=== PATIENT | male | born 1965 | race Caucasian/White ===

== ENCOUNTER 2019-12-13 11:50 | Emergency (ER) | payer OTHER, SELFPAY ==
--- NOTE | ~2019-12-13 | CT_ITS ---
EXAMINATION: CT lumbar spine wo [facility] EXAM DATE: 12/13/2019 14:52 INDICATION: Low back pain radiating down right leg. TECHNIQUE: Spiral CT of the lumbar spine was performed without contrast. Axial, coronal and sagittal images were reviewed. The dose-length product (DLP) for this examination was 1107.33 mGy-cm. The exposure was tailored according to patient size (auto mA exposure control), and iterative reconstruct ion (ASIR) was used as additional dose reduction technique. There is no prior study for comparison. FINDINGS: There is mild to moderate disc disease at L5-S1 with 2 mm retrolisthesis. Mild disc disease at the other thoracolumbar levels. There are small endplate osteophytes. There are no acute fracture s identified. No spondylolysis. There are no osteoblastic or osteolytic lesions identified. No hydron ephrosis. Mild sigmoid diverticulosis. There are no bony erosions identified. Level by level evaluation: T12-L1: Disc does not extend beyond the endplate margin. Facet arthropathy: None. Neural foraminal stenosis: No stenosis. Central canal stenosis: No stenosis. L1-L2: Disc does not extend beyond the endplate margin. Facet arthropathy: Mild. Neural foraminal stenosis: No stenosis. Central canal stenosis: No stenosis. L2-L3: There is a minimal diffuse disc bulge. Facet arthropathy: Mild. Neural foraminal stenosis: No stenosis. Central canal stenosis: No stenosis. L3-L4: There is a mild diffuse disc bulge. Facet arthropathy: Mild. Neural foraminal stenosis: No stenosis. Central canal stenosis: No stenosis. L4-L5: There is a mild diffuse disc bulge. Facet arthropathy: Mild to moderate. Neural foraminal stenosis: Mild left. Central canal stenosis: Mild. L5-S1: There is posterior disc osteophyte complex asymmetric to the right Facet arthropathy: Mild to moderate. Neural foraminal stenosis: Moderate right, mild left. Central canal stenosis: Mild. IMPRESSION: 1. L5-S1 moderate right neural foraminal stenosis. 2. Otherwise mild to moderate lumbar spondylosis. 3. No acute findings. Reviewed, dictated and finalized at location B. [facility] signed by Abhishek Ko M.D. on 12/13/2019 15:05 CDT
--- NOTE | ~2019-12-13 | US_ITS ---
EXAMINATION: US venous doppler LE RT DATE: 12/13/2019 15:16 INDICATION: Right lower limb pain TECHNIQUE: Gonzales scale images without and with compression and Doppler images of the right lower extre mity veins were obtained. COMPARISON: None FINDINGS: The right common femoral vein, profunda femoral vein, femoral vein, popliteal vein, peronea l trunk, posterior tibial veins, and greater saphenous vein are patent. IMPRESSION: 1. Patent right lower extremity veins. No evidence of deep venous thrombosis. Reviewed, dictated and finalized at location A.
[2019-12-13 12:04] VITALS: BP 125/79; PULSE 78; RESP 18; TEMP 36.7; O2SAT 99
[2019-12-13 13:57] VITALS: BP 138/82; PULSE 52; RESP 20; TEMP 36.6; O2SAT 99
--- NOTE | 2019-12-13 14:04 | PC.NURSE ---
Patient also reports intermittent ana luisa horse feeling to his right calf. calf is not swollen and same size as the left calf. There is no redness or increased warmth to the right calf compared to the left.
--- NOTE | 2019-12-13 14:22 | ED.BACK ---
HPI - Back Pain/Injury General Chief Complaint: Back Pain/Injury Stated Complaint: back pain Time Seen by Provider: 12/13/19 13:08 Source: patient Mode of arrival: wheelchair Limitations: no limitations History of Present Illness HPI Narrative: This is a 54 year old male that presents to the ER for right sided buttock pain radiating down the right leg. Reports it has been present for months. Reports worsening over the last couple of days. No known injury or trauma. Denies fever, dysuria, hematuria, saddle anesthesia or bowel/bladder incontinence. Related Data Allergies Allergy/AdvReac Type Severity Reaction Status Date / Time No Known Allergies Allergy Verified 12/13/19 12:08 Review of Systems Review of Systems: Narrative: CONSTITUTIONAL: Denies fever SKIN: Denies rash MUSCULOSKELETAL: Reports back pain, joint pain, and myalgia. NEUROLOGIC: Denies numbness, or weakness. All systems reviewed & are unremarkable except as noted in HPI and below PMFSH Family History Family History (Updated 03/25/17 @ 10:41 by DOCTOR UNKNOWN) Father Family history of diabetes mellitus in first degree relative Other Family history of malignant neoplasm Hypertension Social History Social History (Updated 12/13/19 @ 14:24 by Abby Pérez PA-C) Smoking status: Never smoker Second hand tobacco smoke exposure: No Alcohol intake: current Substance use: never Gender identity (if verbalized by the patient): Male Exam Narrative: Exam Narrative: GENERAL: Well-appearing, well-nourished, and in no acute distress. HEAD: Normocephalic, atraumatic. EYES: EOMI. CHEST: Clear to auscultation. No respiratory distress. No wheezes rales or rhonchi HEART: Regular rate and rhythm. No murmur heard. Normal peripheral pulses. BACK: No midline spinal tenderness EXTREMITIES: Normal range of motion. No edema or erythema. Strength equal in bilateral lower extremities (5/5). Normal DP pulses. Normal sensation SKIN: Warm, dry, no rash. NEURO: No focal deficits. Alert and oriented x3. PSYCH: Normal mood and affect Course Vital Signs Vital signs: Vital Signs Temperature 98.1 F 12/13/19 12:04 Pulse Rate 78 12/13/19 12:04 Respiratory Rate 18 12/13/19 12:04 Blood Pressure 125/79 12/13/19 12:04 Pulse Oximetry 99 12/13/19 12:04 Temperature 97.8 F 12/13/19 13:57 Pulse Rate 52 L 12/13/19 13:57 Respiratory Rate 20 12/13/19 13:57 Blood Pressure 138/82 12/13/19 13:57 Pulse Oximetry 99 12/13/19 13:57 MDM - Back Pain/Injury MDM Narrative Medical decision making narrative: Patient presents the emergency department for right-sided low back pain radiating down the right leg. He is afebrile and nontoxic-appearing. He is neurologically intact. No acute findings on laboratory evaluation. Right lower extremity venous Doppler without evidence of DVT. CT scan of the lumbar spine is without acute findings. Patient does have mild to moderate lumbar spondylosis. Patient was updated on case findings. He was instructed to continue [id number] pain medication as needed. He will be prescribed muscle relaxer as needed for pain as well as steroid taper. He is to follow-up with his primary care doctor. He was given warnings to return to the ER Lab Data Attestation: I reviewed the patient's lab results. Result diagrams: 12/13/19 15:12 12/13/19 15:12 Labs: Lab Results 12/13/19 12/13/19 12/13/19 Range/Units 15:12 15:12 15:12 WBC 7.8 (4.5-10.0) K/mm3 RBC 4.60 (4.6-6.20) M/mm3 Hgb 14.2 (14.0-18.0) g/dL Hct 43.1 (42.0-52.0) % MCV 93.7 (80-100) fl MCH 30.9 (26-34) pg MCHC 32.9 (32-36) g/dl RDW 13.3 (11.5-14.5) % Plt Count 376 H (150-375) k/mm3 MPV 9.8 (7.4-10.4) fl Immature Gran % (Auto) 0.5 (0-0.5) % Neut % (Auto) 76.6 H (45.5-73.1) % Lymph % (Auto) 16.5 L (18.3-44.2) % [place] % (Auto) 6.0 (2.6-8.5) % Eos % (Auto
[2019-12-13] MEDS: diazePAM INJ (*CRX) 10 MG/2 ML SYRINGE 5 MG IV PUSH (15:15)
[2019-12-13] MEDS: KETOROLAC 30 MG/ML VIAL (*BKC) IV PUSH (15:15)
[2019-12-13 15:38] LABS: Basophils Percent Auto 0.3 % (0.2-1.2); Eosinophils Percent Auto 0.1 % (0-4.4); Hematocrit 43.1 % (42.0-52.0); Hemoglobin 14.2 g/dL (14.0-18.0); Immature Granulocyte Absolute 0.04 K/mm3 (0.00-0.031); Immature Granulocyte Percent A 0.5 % (0-0.5); Lymphocytes Absolute Auto 1.28 K/mm3 (0.9-3.2); Lymphocytes Percent Auto 16.5 % (18.3-44.2); Mean Corpuscular HGB Conc 32.9 g/dl (32-36); Mean Corpuscular Hemoglobin 30.9 pg (26-34); Mean Corpuscular Volume 93.7 fl (80-100); Mean Platelet Volume 9.8 fl (7.4-10.4); Monocytes Absolute Auto 0.5 K/mm3 (0.1-0.6); Neutrophils Percent Auto 76.6 % (45.5-73.1); Platelet Count Result 376 k/mm3 (150-375); Red Cell Distribution Width 13.3 % (11.5-14.5); White Blood Count 7.8 K/mm3 (4.5-10.0)
[2019-12-13 15:56] LABS: Partial Thromboplastin Time 26.7 SECONDS (22.3-36.8); Prothrombin Time 12.7 Seconds (11.1-14.7)
[2019-12-13 15:57] LABS: Anion Gap 8 mmol/L (8-16); Blood Urea Nitrogen 19 mg/dL (9-20); Carbon Dioxide 31 mmol/L (22-30); Chloride 103 mmol/L (98-107); Estimated CRCL calculation 79 ml/min; Estimated Glomerular Filt Rate > 60; Glucose 104 mg/dL (75-110); Sodium 142 mmol/L (137-145)
[2019-12-13 16:13] LABS: Calcium 9.4 mg/dL (8.4-10.2); Potassium 4.1 mmol/L (3.4-5.0)
[2019-12-13 16:45] VITALS: BP 159/99; PULSE 67; RESP 18; O2SAT 100
== END 2019-12-13 16:45 | disposition home or self-care (01) ==
PROVIDERS: Physician Assistant; Emergency Provider Emergency Medicine; PCP Internal Medicine
DX: M54.31 Sciatica, right side (principal); M47.816 Spondylosis without myelopathy or radiculopathy, lumbar region; M48.07 Spinal stenosis, lumbosacral region
CPT/HCPCS: 36415; 72131; 80048; 85025; 85610; 85730; 93971; 96374; 96375; 99284; J1885; J3360

== ENCOUNTER → 2020-05-20 07:10 | Outpatient (CLI) | payer OTHER, SELFPAY ==
[2020-05-21 00:15] LABS: SARS-CoV-2 RNA PCR Positive
== END ==
PROVIDERS: PCP Internal Medicine; Visit Provider Internal Medicine
DX: U07.1 COVID-19 (principal)
CPT/HCPCS: C9803; U0003; U0005

== ENCOUNTER 2020-05-28 18:37 | Emergency (ER) | payer OTHER, SELFPAY ==
--- NOTE | ~2020-05-28 | XR_ITS ---
XR chest 1V portable DATE: 05/28/2020 19:28 INDICATION: Cough, shortness of breath for 10 days. Covid-positive. TECHNIQUE: Portable upright AP chest on 05/28/2020 at 1928 hours COMPARISON: None FINDINGS: Calcified right paratracheal lymph node consistent with old granulomatous disease. Heart size appears normal. There are patchy infiltrates in the mid and lower lung zones primarily. Findings suggest bilateral pn eumonia. Degenerative spurring of the thoracic spine. IMPRESSION: Patchy infiltrates of the mid and lower lung zones suggesting bilateral pneumonia Reviewed, dictated and finalized at location A. IMPRESSION: Patchy infiltrates of the mid and lower lung zones suggesting bilat eral pneumonia
[2020-05-28 18:45] VITALS: BP 133/98; PULSE 88; RESP 20; TEMP 36.8; O2SAT 96
--- NOTE | 2020-05-28 19:16 | ED.GENADULT ---
HPI - General Adult General Chief complaint: Upper Respiratory Infection Stated complaint: Has COVID, increased shortness of breath. Time Seen by Provider: 05/28/20 19:03 Source: RN notes reviewed History of Present Illness HPI narrative: Patient presents to emergency department from home for shortness of breath. Patient states he was diagnosed with Covid 19 approximately 10 days ago. He states that he has been cleared to go back to work tomorrow but continues to have feelings of shortness of breath with exertion states he feels like he cannot take deep breath and then begins to cough he denies any fevers or chills chest pain abdominal pain nausea vomiting or any other symptoms denies any tobacco use. States no shortness of breath with sitting in bed only with exertion . Related Data Allergies Allergy/AdvReac Type Severity Reaction Status Date / Time No Known Allergies Allergy Verified 05/28/20 18:49 Review of Systems Review of Systems: Narrative: Gen.: Denies fevers or chills ENT: Denies congestion Respiratory: See HPI CV: Denies chest pain or palpitations GI: Denies abdominal pain nausea, emesis or diarrhea Musculoskeletal: Denies back pain or muscle pain Neuro: Denies numbness, tingling, weakness or focal weakness Skin: Denies rash Except as documented, all other systems reviewed and negative [facility] Past Medical History Medical History Sleep apnea Surgical History Surgical History History of carpal tunnel surgery Family History Family History Father Family history of diabetes mellitus in first degree relative Mother Cancer Other Family history of malignant neoplasm Hypertension Social History Social History Smoking status: Never smoker Second hand tobacco smoke exposure: No Alcohol intake: current Substance use: never Gender identity (if verbalized by the patient): Male Exam Narrative: Exam Narrative: APPEARANCE: No acute distress, nontoxic, resting in bed EYES: EOMI HEENT: Normocephalic, atraumatic, OMM RESPIRATORY: No respiratory distress Clear to auscultation bilaterally with no rhonchi wheezing or rales. CARDIOVASCULAR: Regular rate and rhythm without murmurs rubs or gallops. ABDOMINAL: Soft, nontender, nondistended, no rebound or guarding MUSCULOSKELETAl: Moves all extremities. No clubbing, cyanosis or edema. NEURO: Awake and alert. Following commands, speech normal, no focal deficits SKIN:: Warm, dry. No rashes lesions or abrasions PSYCHIATRIC: Normal affect/mood, Course Course Emergency Course: Patient with walking pulse ox in ED with saturations remaining at 94%. No desaturation noted Discussed with patient results of workup and diagnosis. Discussed need for follow-up with primary care, proper use of medication, and reasons to return to the emergency department. Patient understands and agrees to current treatment plan Vital Signs Vital signs: Vital Signs Temperature 98.2 F 05/28/20 18:45 Pulse Rate 88 05/28/20 18:45 Respiratory Rate 20 05/28/20 18:45 Blood Pressure 133/98 H 05/28/20 18:45 Pulse Oximetry 96 05/28/20 18:45 Temperature 98.2 F 05/28/20 18:45 Pulse Rate 88 05/28/20 18:45 Respiratory Rate 20 05/28/20 18:45 Blood Pressure 133/98 H 05/28/20 18:45 Pulse Oximetry 96 05/28/20 18:45 Medical Decision Making Vital Signs Vital Signs: Vital Signs Temperature 98.2 F 05/28/20 18:45 Pulse Rate 88 05/28/20 18:45 Respiratory Rate 20 05/28/20 18:45 Blood Pressure 133/98 H 05/28/20 18:45 Pulse Oximetry 96 05/28/20 18:45 Temperature 98.2 F 05/28/20 18:45 Pulse Rate 88 05/28/20 18:45 Respiratory Rate 20 05/28/20 18:45 Blood Pressure 133/98 H 05/28/20 18:45 Pulse Oximetry 96 05/28/20
[2020-05-28] MEDS: ALBUTEROL SULFATE (*SP) AEROSOL 1 PUFF 2 PUFF INHALATION (19:26)
[2020-05-28 19:43] LABS: Basophils Percent Auto 0.2 % (0.2-1.2); Eosinophils Percent Auto 0.4 % (0-4.4); Hemoglobin 13.7 g/dL (14.0-18.0); Immature Granulocyte Absolute 0.02 K/mm3 (0.00-0.031); Immature Granulocyte Percent A 0.4 % (0-0.5); Lymphocytes Percent Auto 25.7 % (18.3-44.2); Mean Corpuscular HGB Conc 33.4 g/dl (32-36); Mean Corpuscular Hemoglobin 30.7 pg (26-34); Mean Corpuscular Volume 91.9 fl (80-100); Mean Platelet Volume 9.1 fl (7.4-10.4); Monocytes Absolute Auto 0.4 K/mm3 (0.1-0.6); Monocytes Percent Auto 7.2 % (2.6-8.5); Neutrophils Absolute Auto 3.6 K/mm3 (1.3-6.7); Neutrophils Percent Auto 66.1 % (45.5-73.1); Platelet Count Result 348 k/mm3 (150-375); Red Blood Count 4.46 M/mm3 (4.6-6.20); Red Cell Distribution Width 12.8 % (11.5-14.5); White Blood Count 5.4 K/mm3 (4.5-10.0)
[2020-05-28 19:48] LABS: Partial Thromboplastin Time 28.4 SECONDS (22.3-36.8); Prothrombin Time 13.3 Seconds (11.1-14.7)
[2020-05-28 19:50] LABS: Alanine Aminotransferase 42 U/L (4-50); Albumin Level 4.2 g/dL (3.5-5.1); Alkaline Phosphatase 118 U/L (38-126); Anion Gap 7 mmol/L (8-16); Aspartate Amino Transferase 44 U/L (17-59); Bilirubin,Total 0.4 mg/dL (0.2-1.3); Blood Urea Nitrogen 20 mg/dL (9-20); Calcium 8.8 mg/dL (8.4-10.2); Carbon Dioxide 30 mmol/L (22-30); Chloride 101 mmol/L (98-107); Estimated CRCL calculation 70 ml/min; Estimated Glomerular Filt Rate > 60; Glucose 129 mg/dL (75-110); Potassium 4.2 mmol/L (3.4-5.0); Sodium 138 mmol/L (137-145)
[2020-05-28 19:51] LABS: D Dimer 0.47 ug/mL (<0.48)
[2020-05-28 22:11] VITALS: BP 122/70; PULSE 80; RESP 18; O2SAT 99
== END 2020-05-28 22:13 | disposition home or self-care (01) ==
PROVIDERS: Emergency Provider Emergency Medicine; PCP Internal Medicine
DX: U07.1 COVID-19 (principal); G47.30 Sleep apnea, unspecified; R91.8 Other nonspecific abnormal finding of lung field
CPT/HCPCS: 36415; 71045; 80053; 85025; 85380; 85610; 85730; 94640; 99283; A9270

== ENCOUNTER 2020-07-19 11:06 | Outpatient (CLI) | payer OTHER, SELFPAY ==
[2020-07-19 11:57] LABS: Cholesterol 198 mg/dL (0-200); HDL Direct 51 mg/dL; Triglycerides 84 mg/dL (<150)
[2020-07-19 12:10] LABS: LDL Cholesterol Direct 119 mg/dL
[2020-07-19 12:30] LABS: Prostate Specific Antigen 1.9 ng/mL (< OR = 4.0)
[2020-07-19 13:03] LABS: Folic Acid 18.7 ng/mL (2.76->20)
== END 2020-07-19 11:07 | disposition home or self-care (01) ==
PROVIDERS: PCP Internal Medicine; Visit Provider Physician Assistant
DX: Z00.00 Encounter for general adult medical examination without abnormal findings (principal); Z12.5 Encounter for screening for malignant neoplasm of prostate
CPT/HCPCS: 36415; 80061; 82607; 82746; 84153; 84443; G0103

== ENCOUNTER 2021-04-19 00:30 | Day surgery (SDC) | payer OTHER, SELFPAY ==
[2021-04-09 16:20] VITALS: BMI 33.5
--- NOTE | 2021-04-18 13:00 | PM.HPGS ---
History of Present Illness History of Present Illness Consent: Risks, benefits, and alternatives have been discussed and questions answered. Patient agrees to proceed with procedure. Chief complaint: neoplasm screening Narrative: Brock Cooney is a 55 year old male Who is due for colon cancer screening; his last colonoscopy was 13 years ago and was .normal Review of Systems Review of Systems: All systems reviewed & are unremarkable except as noted in HPI and below PMFSH Past Medical History Medical History Sleep apnea Surgical History Surgical History History of carpal tunnel surgery Family History Family History Father Family history of diabetes mellitus in first degree relative Mother Cancer Other Family history of malignant neoplasm Hypertension Social History Social History Smoking status: Never smoker Second hand tobacco smoke exposure: No Alcohol intake: current Drinks per week: 5 Substance use: never Substance use type: does not use Living arrangements: with family Gender identity (if verbalized by the patient): Male Spiritual care concerns: No Meds Home Medications and Allergies Home Medications Medication Instructions Recorded Confirmed Type multivitamin 1 tablet PO DAILY 07/26/20 04/19/21 History Allergies Allergy/AdvReac Type Severity Reaction Status Date / Time No Known Allergies Allergy Verified 04/19/21 06:18 Exam Resp: Auscultation: clear to auscultation bilaterally Cardio: Rate: regular rate Rhythm: regular rhythm GI: GI Palp: Yes Soft to palpation and No Tenderness to palpation present (GI) Assessment and Plan Assessment and plan (1) Colon cancer screening: Code(s): Z12.11 - Encounter for screening for malignant neoplasm of colon Status: Acute Assessment and Plan: Colonoscopy with possible biopsy or polypectomy or cautery or injection of substances.
[2021-04-19 06:20] VITALS: BP 154/91; PULSE 69; RESP 20; TEMP 36.4; O2SAT 98; BMI 33.7
[2021-04-19] MEDS: LACTATED RINGERS 1,000 ML 150 ML IV CONT (06:22)
--- NOTE | 2021-04-19 07:13 | WPDANESEPPF ---
Anes - Initial Pre Proc Eval Procedure: Operation Date: 04/19/21 07:30 Proposed Procedures p Screening Colonoscopy - Juni Romero MD Date/Time: 04/19/21 07:13 Surgeon: Juni Romero MD Pre Op Diagnosis: neoplasm screening Patient Data Age: 55 Gender: M Height: 1.73 m Weight: 100.8 kg Last Vital Signs Temp 97.6 F 04/19/21 06:20 Pulse 69 04/19/21 06:20 Resp 20 04/19/21 06:20 BP 154/91 H 04/19/21 06:20 Pulse Ox 98 04/19/21 06:20 Allergies Allergy/AdvReac Type Severity Reaction Status Date / Time No Known Allergies Allergy Verified 04/19/21 06:18 Home Medications Medication Instructions Recorded Confirmed Type multivitamin 1 tablet PO DAILY 07/26/20 04/19/21 History Patient hx anesthesia problems: none Family hx anesthesia problems: none Results Review: All pre-operative results and documents have been reviewed as part of the pre-operative evaluation. [facility] Past Medical History Medical History Sleep apnea Surgical History Surgical History History of carpal tunnel surgery Family History Family History Father Family history of diabetes mellitus in first degree relative Mother Cancer Other Family history of malignant neoplasm Hypertension Social History Social History Smoking status: Never smoker Second hand tobacco smoke exposure: No Alcohol intake: current Drinks per week: 5 Substance use: never Substance use type: does not use Living arrangements: with family Gender identity (if verbalized by the patient): Male Spiritual care concerns: No Anes - Eval Final PreProcedure Day of Procedure 04/19/21 07:13 Patient weight: obese Heart: regular rate and rhythm Lungs: clear to auscultation Airway: Mallampati scale class II Neurological: alert and oriented Last oral intake: >/= 8 hours ASA classification: II Emergent: no Anesthetic plan: proceed Anesthesia type and monitoring: general GIVS and standard monitoring Results Review: All pre-operative results and documents have been reviewed as part of the pre-operative evaluation. Informed Consent: The patient's anesthetic plan and its attendant risks and benefits were discussed with the patient/family/POA. Questions were solicited and answers provided to the satisfaction of the patient/family/POA.
[2021-04-19 07:51] VITALS: BP 128/88; PULSE 64; RESP 26; O2SAT 100
[2021-04-19 08:01] VITALS: BP 127/87; PULSE 53; RESP 25; O2SAT 99
[2021-04-19 08:11] VITALS: BP 146/90; PULSE 54; RESP 20; O2SAT 98
--- NOTE | 2021-04-19 09:05 | WPDANESEPPF ---
Anes - Initial Pre Proc Eval Procedure: Operation Date: 04/19/21 07:30 Proposed Procedures p Screening Colonoscopy - Juni Romero MD Date/Time: 04/19/21 09:05 Surgeon: Juni Romero MD Pre Op Diagnosis: neoplasm screening Patient Data Age: 55 Gender: M Height: 1.73 m Weight: 100.8 kg Last Vital Signs Temp 36.4 C 04/19/21 06:20 Pulse 54 L 04/19/21 08:11 Resp 20 04/19/21 08:11 BP 146/90 H 04/19/21 08:11 Pulse Ox 98 04/19/21 08:11 Allergies Allergy/AdvReac Type Severity Reaction Status Date / Time No Known Allergies Allergy Verified 04/19/21 06:18 Home Medications Medication Instructions Recorded Confirmed Type multivitamin 1 tablet PO DAILY 07/26/20 04/19/21 History Patient hx anesthesia problems: none Family hx anesthesia problems: none Results Review: All pre-operative results and documents have been reviewed as part of the pre-operative evaluation. [facility] Past Medical History Medical History (Updated 04/19/21 @ 09:06 by Lele Dueñas DO) Anemia Sleep apnea Surgical History Surgical History History of carpal tunnel surgery Family History Family History Father Family history of diabetes mellitus in first degree relative Mother Cancer Other Family history of malignant neoplasm Hypertension Social History Social History Smoking status: Never smoker Second hand tobacco smoke exposure: No Alcohol intake: current Drinks per week: 5 Substance use: never Substance use type: does not use Living arrangements: with family Gender identity (if verbalized by the patient): Male Spiritual care concerns: No Anes - Eval Final PreProcedure Day of Procedure 04/19/21 09:05 Patient weight: obese Heart: regular rate and rhythm Lungs: clear to auscultation and normal air movement Airway: Mallampati scale class II Neurological: alert and oriented Last oral intake: >/= 8 hours ASA classification: II Emergent: no Anesthetic plan: proceed Anesthesia type and monitoring: general GIVS and standard monitoring Results Review: All pre-operative results and documents have been reviewed as part of the pre-operative evaluation. Informed Consent: The patient's anesthetic plan and its attendant risks and benefits were discussed with the patient/family/POA. Questions were solicited and answers provided to the satisfaction of the patient/family/POA.
== END 2021-04-19 08:14 | disposition home or self-care (01) ==
PROVIDERS: PCP Internal Medicine; Visit Provider Internal Medicine Gastroenterology
PROC: 0DJD8ZZ Inspection of Lower Intestinal Tract, Via Natural or Artificial Opening Endoscopic (ICD-10-PCS; CPT 45378; principal; 2021-04-19 07:30)
DX: Z12.11 Encounter for screening for malignant neoplasm of colon (principal); K64.8 Other hemorrhoids; K57.30 Diverticulosis of large intestine without perforation or abscess without bleeding; G47.30 Sleep apnea, unspecified; E66.9 Obesity, unspecified; Z68.33 Body mass index [BMI] 33.0-33.9, adult
CPT/HCPCS: 45378; J2704; J7120

== ENCOUNTER 2021-07-27 10:15 | Outpatient (CLI) | payer OTHER, SELFPAY ==
[2021-07-27 11:11] LABS: Basophils Percent Auto 0.1 % (0.2-1.2); Eosinophils Percent Auto 0.6 % (0-4.4); Hematocrit 42.5 % (42.0-52.0); Hemoglobin 13.8 g/dL (14.0-18.0); Immature Granulocyte Absolute 0.02 K/mm3 (0.00-0.031); Immature Granulocyte Percent A 0.3 % (0-0.5); Lymphocytes Absolute Auto 1.57 K/mm3 (0.9-3.2); Lymphocytes Percent Auto 22.2 % (18.3-44.2); Mean Corpuscular HGB Conc 32.5 g/dl (32-36); Mean Corpuscular Hemoglobin 30.8 pg (26-34); Mean Corpuscular Volume 94.9 fl (80-100); Mean Platelet Volume 9.3 fl (7.4-10.4); Monocytes Absolute Auto 0.5 K/mm3 (0.1-0.6); Monocytes Percent Auto 7.6 % (2.6-8.5); Neutrophils Absolute Auto 4.9 K/mm3 (1.3-6.7); Neutrophils Percent Auto 69.2 % (45.5-73.1); Platelet Count Result 362 k/mm3 (150-375); Red Blood Count 4.48 M/mm3 (4.6-6.20); Red Cell Distribution Width 13.9 % (11.5-14.5); White Blood Count 7.1 K/mm3 (4.5-10.0)
[2021-07-27 11:30] LABS: Alanine Aminotransferase 24 U/L (6-50); Albumin Level 4.5 g/dL (3.5-5.1); Alkaline Phosphatase 83 U/L (38-126); Anion Gap 8 mmol/L (8-16); Aspartate Amino Transferase 29 U/L (17-59); Bilirubin,Total 0.5 mg/dL (0.2-1.3); Blood Urea Nitrogen 20 mg/dL (9-20); Calcium 8.6 mg/dL (8.4-10.2); Carbon Dioxide 27 mmol/L (22-30); Chloride 102 mmol/L (98-107); Cholesterol 183 mg/dL (0-200); Estimated Glomerular Filt Rate 57; Glucose 104 mg/dL (65-110); HDL Direct 47 mg/dL; Potassium 4.3 mmol/L (3.4-5.0); Sodium 137 mmol/L (137-145); Triglycerides 88 mg/dL (<150)
[2021-07-27 11:54] LABS: LDL Cholesterol Direct 100 mg/dL
[2021-07-27 11:55] LABS: Prostate Specific Antigen 2.6 ng/mL (< OR = 4.0)
[2021-07-27 12:31] LABS: Folic Acid 4.7 ng/mL (2.76->20)
== END 2021-07-27 10:16 | disposition home or self-care (01) ==
LOC: ANHLAB 10:16
PROVIDERS: PCP Internal Medicine; Visit Provider Internal Medicine
DX: Z00.00 Encounter for general adult medical examination without abnormal findings (principal); R53.83 Other fatigue
CPT/HCPCS: 36415; 80053; 80061; 82607; 82746; 84153; 84443; 85025; G0103

== ENCOUNTER 2021-12-02 22:35 | Inpatient (IN) | payer OTHER, SELFPAY ==
--- NOTE | ~2021-12-02 | XR_ITS ---
EXAMINATION: XR ERCP DATE: 12/04/2021 12:29 INDICATION: Right upper quadrant abdominal pain TECHNIQUE: 5 spot fluoroscopic images of the right upper quadrant were obtained during endoscopic ret rograde cholangiopancreatography (ERCP) performed by Dr. Harris. Radiologist was not present for the imaging or procedure. The amount of fluoroscopy time used during this procedure was 1.6 anita luther. COMPARISON: CT dated 12/03/2021 FINDINGS: Images demonstrate endoscopic cannulation and retrograde contrast injection into the normal caliber c ommon bile duct. The visualized portion of the central and hepatic biliary tree also appears normal i n caliber. An elongated ovoid lucent filling defect is seen in the duct on the final image suggests t his most likely represents either a sweeping balloon or gas bubble. No other filling defects or mucos al irregularities appreciated. IMPRESSION: 1. No definitive choledocholithiasis with no ductal dilation of the common bile duct or visualized ce ntral intrahepatic biliary tree. Please refer to the ERCP procedure note for additional details. Reviewed, dictated and finalized at location A. IMPRESSION: 1. No definitive choledocholithiasis with no ductal dilation of the common bile duct or visualized central intrahepatic biliary tree. Please refer to the ERCP procedure note for additional details.
--- NOTE | ~2021-12-02 | CT_ITS ---
EXAMINATION: CT abdomen pelvis w con DATE: 12/03/2021 01:02 INDICATION: Right upper quadrant pain. Nausea and vomiting. TECHNIQUE: Computed tomography (CT) of the abdomen and pelvis was performed with 100 cc Omnipaque 350 intravenous contrast. The dose-length product was 758.69 mGy-cm. Automated exposure control and iter ative reconstruction technique were employed. COMPARISON: CT dated 01/19/2018 FINDINGS: There is a 2 mm distal common bile duct stone. There are gallstones. There is peripancreati c inflammation and fluid, consistent with acute pancreatitis. No evidence for pseudocyst or abscess. There is dependent atelectasis. Heart size normal. Gallbladder is present. Fatty infiltration of the liver. Mild periportal edema. Calcified granulomas of the spleen. The adrenal glands are unremarkable . There are bilateral renal cysts. Nonobstructive bowel gas pattern. No abnormal pelvic masses or flu id collections. Enlarged prostate gland. There is partial moderate lumbar spondylosis. Ankylosis of t he sacroiliac joints. IMPRESSION: 1. Acute uncomplicated pancreatitis likely secondary to obstructing distal common bile duct stone. 2: Cholelithiasis. Reviewed, dictated and finalized at location B. IMPRESSION: 1. Acute uncomplicated pancreatitis likely secondary to obstructing distal comm on bile duct stone. 2: Cholelithiasis.
[2021-12-02 22:35] VITALS: BP 149/73; PULSE 57; RESP 20; TEMP 36.9; O2SAT 100
[2021-12-02 22:48] LABS: Basophils Percent Auto 0.2 % (0.2-1.2); Eosinophils Percent Auto 0.1 % (0-4.4); Hemoglobin 13.5 g/dL (14.0-18.0); Immature Granulocyte Absolute 0.09 K/mm3 (0.00-0.031); Immature Granulocyte Percent A 0.5 % (0-0.5); Lymphocytes Absolute Auto 1.06 K/mm3 (0.9-3.2); Lymphocytes Percent Auto 6.4 % (18.3-44.2); Mean Corpuscular HGB Conc 32.1 g/dl (32-36); Mean Corpuscular Hemoglobin 30.5 pg (26-34); Mean Corpuscular Volume 94.8 fl (80-100); Mean Platelet Volume 9.3 fl (7.4-10.4); Monocytes Absolute Auto 0.8 K/mm3 (0.1-0.6); Monocytes Percent Auto 4.7 % (2.6-8.5); Neutrophils Absolute Auto 14.5 K/mm3 (1.3-6.7); Neutrophils Percent Auto 88.1 % (45.5-73.1); Platelet Count Result 398 k/mm3 (150-375); Red Blood Count 4.43 M/mm3 (4.6-6.20); Red Cell Distribution Width 13.9 % (11.5-14.5); White Blood Count 16.5 K/mm3 (4.5-10.0)
[2021-12-02 22:51] VITALS: BP 135/71; PULSE 57; RESP 14; O2SAT 96
[2021-12-02] MEDS: SODIUM CHLORIDE 0.9% IV 1,000 ML 999 ML IV CONT (22:59)
[2021-12-02] MEDS: MORPHINE SULFATE (*CRX) 4 MG/ML INJ IV PUSH (23:00)
[2021-12-02] MEDS: KETOROLAC 30 MG/ML VIAL (*BKC) IV PUSH (23:00)
[2021-12-02] MEDS: ONDANSETRON INJ 4 MG/2 ML VIAL IV PUSH (23:00)
[2021-12-02 23:23] LABS: Alanine Aminotransferase 151 U/L (6-50); Albumin Level 4.3 g/dL (3.5-5.1); Alkaline Phosphatase 209 U/L (38-126); Anion Gap 8 mmol/L (8-16); Aspartate Amino Transferase 189 U/L (17-59); Bilirubin,Total 1.9 mg/dL (0.2-1.3); Blood Urea Nitrogen 16 mg/dL (9-20); Calcium 8.9 mg/dL (8.4-10.2); Carbon Dioxide 28 mmol/L (22-30); Chloride 104 mmol/L (98-107); Estimated CRCL calculation 63 ml/min; Estimated Glomerular Filt Rate 57; Glucose 154 mg/dL (65-110); Potassium 3.9 mmol/L (3.4-5.0); Sodium 140 mmol/L (137-145)
[2021-12-02 23:41] VITALS: BP 143/71; PULSE 50; RESP 14; O2SAT 100
[2021-12-02 23:45] LABS: Appearance Urine Clear (Clear); Bilirubin Urine 1+ (Negative); Blood Urine Negative (Negative); Color Urine Yellow (Yellow); Glucose Urine UA Negative (Negative); Ketones Urine Negative (Negative); Leukocyte Esterase Ur Negative LEU/UL (Negative); Nitrate Urine Negative (Negative); Protein Urine Negative (Negative)
[2021-12-02 23:55] LABS: Add Urine Microscopic? YES; Mucus Urine Rare /lpf; WBC Urine 0-3 /hpf
[2021-12-03 00:02] LABS: Lipase > 40000 U/L (23-300)
[2021-12-03 00:15] LABS: SARS-CoV-2 RNA PCR Negative
--- NOTE | 2021-12-03 00:18 | ED.GENADULT ---
HPI - General Adult General Chief complaint: Abdominal Pain Stated complaint: n/v abd pain since 6 pm Time Seen by Provider: 12/02/21 22:46 History of Present Illness HPI narrative: Patient 56-year-old gentleman who presents the emergency department with chief complaint of abdominal pain. Patient reports that he has prior history of gallstones and has been told that most likely he is going to have his gallbladder taken out. The patient reports he is never followed up with a surgeon and reports that yesterday he ate some chicken Deon and started having abdominal pain in the epigastric and right upper quadrant. Patient reports that the pain is not improved by anything reports that he feels nauseated patient denies fever Related Data Home Medications Medication Instructions Recorded Confirmed No Home Medications 12/02/21 12/02/21 Allergies Allergy/AdvReac Type Severity Reaction Status Date / Time No Known Allergies Allergy Verified 12/02/21 22:39 Review of Systems Review of Systems: A 10 system review of systems was completed on the patient and is negative except for what is stated in the HPI. Nursing and ancillary documentation was reviewed. PMFSH Past Medical History Medical History Anemia Sleep apnea Surgical History Surgical History History of carpal tunnel surgery Family History Family History Father Family history of diabetes mellitus in first degree relative Mother Cancer Other Family history of malignant neoplasm Hypertension Social History Social History Smoking status: Never smoker Second hand tobacco smoke exposure: No Alcohol intake: current Drinks per week: 5 Substance use: never Substance use type: does not use Gender identity (if verbalized by the patient): Male Spiritual care concerns: No Exam Narrative: GENERAL: Well-appearing, well-nourished, and in no acute distress. HEAD: Normocephalic, atraumatic. EYES: PERRLA and EOMI. ENT: Nares clear, no rhinorrhea or epistaxis. Mucous membranes moist. NECK: Supple. CHEST: Clear to auscultation. No respiratory distress. HEART: Regular rate and rhythm. No murmur heard. Normal peripheral pulses. ABDOMEN: Soft, nontender, nondistended, normal active bowel sounds. EXTREMITIES: Normal range of motion. No edema. SKIN: Warm, dry, no rash. NEURO: No focal deficits. Alert and oriented x3. PSYCH: Normal mood and affect. Course Course Emergency Course: Laboratory studies show an elevated and liver transaminases. The patient has a lipase of greater than 40,000. Vital Signs Vital signs: Vital Signs Temperature 36.9 C 12/02/21 22:35 Pulse Rate 57 L 12/02/21 22:35 Respiratory Rate 20 12/02/21 22:35 Blood Pressure 149/73 H 12/02/21 22:35 Pulse Oximetry 100 12/02/21 22:35 Oxygen Delivery Room Air 12/02/21 22:35 Temperature 36.9 C 12/02/21 22:35 Pulse Rate 50 L 12/02/21 23:41 Respiratory Rate 14 12/02/21 23:41 Blood Pressure 143/71 H 12/02/21 23:41 Pulse Oximetry 100 12/02/21 23:41 Oxygen Delivery Room Air 12/02/21 22:35 Medical Decision Making Vital Signs Vital Signs: Vital Signs Temperature 36.9 C 12/02/21 22:35 Pulse Rate 57 L 12/02/21 22:35 Respiratory Rate 20 12/02/21 22:35 Blood Pressure 149/73 H 12/02/21 22:35 Pulse Oximetry 100 12/02/21 22:35 Oxygen Delivery Room Air 12/02/21 22:35 Temperature 36.9 C 12/02/21 22:35 Pulse Rate 50 L 12/02/21 23:41 Respiratory Rate 14 12/02/21 23:41 Blood Pressure 143/71 H 12/02/21 23:41 Pulse Oximetry 100 12/02/21 23:41 Oxygen Delivery Room Air 12/02/21 22:35 Lab Data Result diagrams: 12/02/21 22:40 12/02/21 22:40
[2021-12-03 01:15] VITALS: PULSE 52; RESP 20; O2SAT 99
[2021-12-03 01:22] VITALS: BP 157/87
[2021-12-03 03:22] VITALS: BP 134/61; PULSE 54; RESP 14; TEMP 36.5; O2SAT 99; BMI 32.8
--- NOTE | 2021-12-03 04:24 | PM.IMHP ---
H&P: HPI History of Present Illness Date/Time: 12/03/21 04:24 Chief Complaint: abdominal pain Narrative: this is a 56-year-old male with past medical history significant for obesity, patient presents to the emergency room due to 1 day duration of epigastric abdominal pain with nausea and vomiting after eating meals patient has not been able to eat anything in ever since launch due to intractable nausea and vomiting every time he eats, denies any fevers, any rigors, any chills, patient has been having abdominal pain is localized in the epigastric area with radiation to the back and is burning in quality rated at 7/10 in intensity after meals for the last 2 months or so denies any weight loss any change in stool character, preliminary workup was significant for CT of abdomen and pelvis with gallstones. CBC showed a leukocytosis of 16,000. patient is been admitted for further evaluation management and treatment. Review of Systems Review of Systems: Abdominal pain, nausea, vomiting Constitutional: Constitutional: Denies chills, Denies fever(s) and Denies malaise Eyes: Eyes: Denies change in vision ENT: Denies dysphagia, Denies vertigo, Denies dizziness and Denies odynophagia Cardiovascular: Cardiovascular: Denies chest pain, Denies irregular heart rhythm, Denies lightheadedness, Denies palpitations and Denies dyspnea on exertion Respiratory: Respiratory: Denies chest congestion, Denies cough, Denies excessive phlegm production, Denies pain on inspiration, Denies dyspnea and Denies dyspnea on exertion Gastrointestinal: Gastrointestinal: Reports abdominal pain ( epigastric area), Denies dyspepsia, Denies heartburn, Reports nausea and Reports vomiting Genitourinary: Genitourinary: Denies dysuria Musculoskeletal: Musculoskeletal: Denies myalgias, Denies joint swelling and Denies muscle weakness Integumentary/Breasts: Skin/Breast: Denies rash Neurologic: Denies vertigo, Denies dizziness, Denies syncope, Denies focal weakness and Denies Sensory deficit (Neuro) Psychiatric: Psychiatric: Reports no additional psychiatric complaints and Reports as per HPI Endocrine: Endocrine: Denies cold intolerance, Denies flushing, Denies heat intolerance, Denies polyphagia, Denies polydipsia and Denies palpitations Hematologic/Lymphatic: Hematologic/Lymphatic: Reports no additional hematologic/lymphatic complaints and Reports as per HPI Allergic/Immunologic: Allergic/Immunologic: Reports no additional allergic/immunologic complaints and Reports as per [facility] Past Medical History Medical History Anemia Sleep apnea Surgical History Surgical History History of carpal tunnel surgery Family History Family History Father Family history of diabetes mellitus in first degree relative Mother Cancer Other Family history of malignant neoplasm Hypertension Social History Social History Smoking status: Never smoker Second hand tobacco smoke exposure: No Alcohol intake: current Drinks per week: 4 Substance use: never Substance use type: does not use Gender identity (if verbalized by the patient): Male Sexual Orientation (if Verbalized by the Patient): Straight or Heterosexual Spiritual care concerns: No Meds Home Medications and Allergies Home Medications Medication Instructions Recorded Confirmed Type No Home Medications 12/02/21 12/02/21 History Allergies Allergy/AdvReac Type Severity Reaction Status Date / Time No Known Allergies Allergy Verified 12/02/21 22:39 Vital Signs Vital Signs - 24 hr 12/02/21 22:35 12/02/21 22:51 12/02/21 23:41 Temperature 98.5 F Pulse Rate 57 L 57 L 50 L Respiratory Rate 20 14 14 Blood Pressure 149/73 H 135/71 143
[2021-12-03 05:24] VITALS: BP 135/71; PULSE 50; RESP 14; TEMP 36.4; O2SAT 98
[2021-12-03] MEDS: SODIUM CHLORIDE 0.9% IV 1,000 ML 125 ML IV CONT ×3 (06:10→23:37)
[2021-12-03] MEDS: PANTOPRAZOLE SODIUM IV 40 MG VIAL IV PUSH (07:40)
[2021-12-03] MEDS: MORPHINE SULFATE (*CRX) 4 MG/ML INJ IV PUSH (10:45)
--- NOTE | 2021-12-03 12:03 | PM.CNGS ---
Assessment and Plan Assessment and plan (1) Acute biliary pancreatitis: Code(s): K85.10 - Biliary acute pancreatitis without necrosis or infection Status: Acute Assessment and Plan: Lipase >40,000 on admission and evidence of pancreatitis on imaging. CT showed evidence of cholelithiasis with distal common bile duct stone, suggesting that this is biliary related. We would recommend to continue with medical treatment of the acute pancreatitis with IV fluids, bowel rest, and analgesics as needed. Agree with GI consultation to evaluate for possible ERCP. The patient will eventually need a cholecystectomy to prevent future episodes of pancreatitis and complications of the gallstones, but we will await GI recommendations and resolution of the pancreatitis prior to proceeding with surgery. Description of the procedure, risks, benefits, alternatives, and expected recovery were discussed in detail. Thank you for allowing us to see the patient in consultation and we will continue to follow along with you. (2) Choledocholithiasis: Code(s): K80.50 - Calculus of bile duct without cholangitis or cholecystitis without obstruction Status: Acute (3) Cholelithiasis: Code(s): K80.20 - Calculus of gallbladder without cholecystitis without obstruction Status: Acute (4) Obesity (BMI 30-39.9): Code(s): E66.9 - Obesity, unspecified Status: Acute (5) Sleep apnea: Code(s): G47.30 - Sleep apnea, unspecified Status: Acute Plan I have discussed the patient's case and plan of care with Dr. Tang. Thank you for allowing us to see the patient in consultation and we will continue to follow along with you. History of Present Illness Consult details Consult date: 12/03/21 Reason for consult: other (Biliary pancreatitis, choledocholithiasis) Requesting physician: Vanessa Holley MD Narrative: This is a 56-year-old man with a history of sleep apnea, who presented to the ER overnight with complaints of abdominal pain. Yesterday morning he had eaten cinnamon rolls for breakfast. He then developed epigastric abdominal pain around 9-10 am. The pain radiated across his entire upper abdomen. This pain became more severe throughout the day. He had associated nausea and multiple episodes of vomiting at home. Due to the persistent pain, he came into the ER for evaluation. CT scan of the abdomen and pelvis showed acute uncomplicated pancreatitis likely secondary to an obstructing distal common bile duct stone, and cholelithiasis. A 2 mm distal common bile duct stone is noted on CT. [place] [address], elevated LFTs, and lipase < 40,000. The patient has been admitted and is currently NPO. He is on IV fluids and IV Zosyn. Our service has been consulted for biliary pancreatitis and choledocholithiasis. GI has been consulted. The patient is now seen on the medical floor. He reports being told years ago that he had gallstones and has noticed intermittent abdominal pain typically after eating in the past, but had not followed up with a surgeon. He denies a history of pancreatitis. No previous abdominal surgeries. Review of Systems Review of Systems: All systems reviewed & are unremarkable except as noted in HPI and below Constitutional: Constitutional: Reports as per HPI, Reports no additional constitutional complaints, Denies chills, Denies fatigue and Denies fever(s) Eyes: Eyes: Reports no additional eye complaints ENT: Reports system reviewed and no additional complaints, except as documented and Reports Normal hearing present Cardiovascular: Cardiovascular: Reports no additional cardiovascular complaints, Denies chest pain and Denies leg edema Respiratory: Respiratory: Reports no additional respiratory complaints, Denies cough and Denies dyspnea Gastrointestinal: Gastrointestinal: Reports no additional gastrointestinal complaints, Reports abdominal pain, Denies change in stool
--- NOTE | 2021-12-03 13:45 | WPDGICN ---
Assessment and Plan Assessment and plan (1) Acute biliary pancreatitis: Code(s): K85.10 - Biliary acute pancreatitis without necrosis or infection Status: Acute Assessment and Plan: biliary related and also GS will proceed with ERCP tomorrow (this was explained to patient) given finding of 2 mm stone in distal bile duct CL diet for now and npo after midnight (2) Choledocholithiasis: Code(s): K80.50 - Calculus of bile duct without cholangitis or cholecystitis without obstruction Status: Acute Assessment and Plan: ercp tomorrow, also surgery in the case for lap cholecystectomy near future (3) Nausea and vomiting: Code(s): R11.2 - Nausea with vomiting, unspecified Status: Acute Assessment and Plan: improved (4) Abdominal pain: Code(s): R10.9 - Unspecified abdominal pain Status: Acute Assessment and Plan: better (5) Elevated liver enzymes: Code(s): R74.8 - Abnormal levels of other serum enzymes Status: Acute Assessment and Plan: biliary related monitor GI Consult Note Consult date/time: 12/03/21 13:45 Reason for consult: GS pancreatitis, choledocholithiasis HPI: Brock Cooney is a 56 year old male with no major chronic medical problem here with new onset of severe pain in epigastric abdominal pain along with nausea and vomiting after eating meals for last day prior to admission, burning in quality. He says that has been having intermittent episodes 2-3 times a week for last month of pain after eating certain meals sometimes lasting up to 1-2 hours and few occasions had emesis. ER evaluation consistent with GS pancreatitis, CT of abdomen and pelvis reviewed and showed acute uncomplicated pancreatitis likely secondary to obstructing distal common bile duct stone (2mm stone), cholelithiasis..? CBC showed a leukocytosis of 16,000, TB 1.9, transaminase 100's, lipase 40k. Pain and nausea better now. Alcohol only socially, no previous episode of pancreatitis, never had EGD. Had colonoscopy earlier this year. Review of Systems Review of Systems: All systems reviewed & are unremarkable except as noted in HPI and below Constitutional: Constitutional: Reports as per HPI, Reports no additional constitutional complaints, Denies chills, Denies fatigue and Denies fever(s) Eyes: Eyes: Reports no additional eye complaints ENT: Reports system reviewed and no additional complaints, except as documented and Reports Normal hearing present Cardiovascular: Cardiovascular: Reports no additional cardiovascular complaints, Denies chest pain and Denies leg edema Respiratory: Respiratory: Reports no additional respiratory complaints, Denies cough and Denies dyspnea Gastrointestinal: Gastrointestinal: Reports no additional gastrointestinal complaints, Reports abdominal pain, Denies change in stool character, Denies coffee ground emesis, Reports nausea, Reports vomiting and Denies hematemesis Genitourinary: Genitourinary: Reports no additional male genitourinary complaints Musculoskeletal: Musculoskeletal: Reports no additional musculoskeletal complaints Integumentary/Breasts: Skin/Breast: Reports system reviewed and no additional complaints, except as docu and Denies jaundice Neurologic: Reports system reviewed and no additional complaints, except as documented, Denies dizziness, Denies focal weakness, Denies numbness and Denies tingling PMFSH Past Medical History Medical History (Updated 12/03/21 @ 13:49 by Carlos Harris MD) Anemia Elevated liver enzymes Sleep apnea Compliant with CPAP Surgical History Surgical History History of carpal tunnel surgery Family History Family History Father Family history of diabetes mellitus in first degree relative Mother Cancer Other Family history of malignant neoplasm Hyper
[2021-12-03 14:00] VITALS: BP 141/66; PULSE 59; RESP 14; TEMP 36.4; O2SAT 97
--- NOTE | 2021-12-03 14:54 | PM.IMPN ---
Progress Note: A&P Assessment and Plan (1) Cholelithiasis: Code(s): K80.20 - Calculus of gallbladder without cholecystitis without obstruction Status: Acute (2) Abdominal pain: Code(s): R10.9 - Unspecified abdominal pain Status: Acute (3) Nausea and vomiting: Code(s): R11.2 - Nausea with vomiting, unspecified Status: Acute Plan # acute biliary pancreatitis: Lipase more than 40,000 admission. Evidence of pancreatitis on CT. Associated choledocholithiasis with distal common bile duct stone. LFTs elevated as well. GI consulted and plan for ERCP in a.m.. General surgery on board for eventually cholecystectomy. # cholelithiasis # sleep apnea # DVT prophylaxis SCDs # code status full code Subjective Date/time seen: 12/03/21 14:54 Interval history: 12/03/2021: Patient presented with abdominal pain. Prior history of gallstones. labs with leukocytosis of 16,000. lipase elevated more than 40,000 with elevated AST ALT and alk phosphatase. UA negative. CT abdomen pelvis with acute uncomplicated pancreatitis likely secondary to obstructing distal common bile duct stone along with cholelithiasis. social alcohol use. No prior episodes of pancreatitis. GI And General surgery has been consulted.ERCP planned tomorrow. Today the clear liquid Diet that he tried did not work so well. He is a little bit more sore currently in his belly. Denies any nausea or vomiting. Review of Systems Review of Systems: All systems reviewed & are unremarkable except as noted in HPI and below Exam Narrative: GENERAL: Well-appearing, well-nourished, and in no acute distress. HEAD: Normocephalic, atraumatic. EYES: PERRLA and EOMI. ENT: Nares clear, no rhinorrhea or epistaxis.? Mucous membranes moist. NECK: Supple. nontender CHEST: Clear to auscultation.? No respiratory distress. HEART: Regular rate and rhythm.? No murmur heard.? Normal peripheral pulses. ABDOMEN: Soft, tender epigastric and right upper quadrant area, nondistended, normal active bowel sounds. EXTREMITIES: Normal range of motion.? No edema. SKIN: Warm, dry, no rash. NEURO: No focal deficits.? Alert and oriented x3. PSYCH: Normal mood and affect. Objective Data Vital Signs Vital Signs: Vital Signs - 24 hr 12/02/21 22:35 12/02/21 22:51 12/02/21 23:41 Temperature 98.5 F Pulse Rate 57 L 57 L 50 L Respiratory Rate 20 14 14 Blood Pressure 149/73 H 135/71 143/71 H Pulse Oximetry 100 96 100 Oxygen Delivery Room Air 12/03/21 01:15 12/03/21 01:22 12/03/21 03:22 Temperature 97.7 F Pulse Rate 52 L 54 L Respiratory Rate 20 14 Blood Pressure 157/87 H 134/61 Pulse Oximetry 99 99 Oxygen Delivery 12/03/21 05:24 12/03/21 14:00 Temperature 97.6 F 97.6 F Pulse Rate 50 L 59 L Respiratory Rate 14 14 Blood Pressure 135/71 141/66 H Pulse Oximetry 98 97 Oxygen Delivery Intake/Output Intake/Output: Intake & Output 11/30/21 12/01/21 12/02/21 12/03/21 23:59 23:59 23:59 23:59 Intake Total 2100 Balance 2100 Meds/Results Medications: Active Medications Generic Name Dose Route Start Last Admin Trade Name Freq PRN Reason Stop Dose Admin Piperacillin/Tazobactam/Dextrose 3.375 gm in 50 mls @ 100 mls/hr 12/03/21 08:00 12/03/21 13:35 Zosyn 3.375 Gm/D5w 50ml Pm IVPB 100 mls/hr Q6H DOMINIQUE Administration Sodium Chloride 1,000 mls @ 125 mls/hr 12/03/21 02:05 12/03/21 13:38 Normal Saline Iv IV CONT 125 mls/hr .Q8H DOMINIQUE Administration Acetaminophen 1,000 mg in 100 mls @ 400 mls/hr 12/03/21 13:24 Ofirmev 1,000 Mg Ivpb IVPB 12/04/21 13:23 Q6H PRN Pain Rated 1-3 Morphine Sulfate 4 mg 12/03/21 02:04 12/03/21 10:45 Morphine Sulfate (*Crx) 4 Mg/Ml Inj IV PUSH 4 mg Q2H PRN Administration Pain Rated 7-10 Morphine Sulfate 2 mg 12/03/21 13:24 Morphine Sulfate (*Crx) 2 Mg/Ml Inj IV PUSH Q2H PRN Pain Rated 4-6 Ondansetron HCl 4 mg 12/03/21 02:04
[2021-12-03 20:14] VITALS: BP 138/72; PULSE 64; RESP 16; TEMP 37.1; O2SAT 93
[2021-12-04] VITALS (13 sets, daily range): BP systolic 125–177; BP diastolic 63–77; PULSE 51–72; RESP 16–21; TEMP 36.6–36.9; O2SAT 95–100
[2021-12-04] MEDS: MORPHINE SULFATE (*CRX) 2 MG/ML INJ IV PUSH (01:04)
[2021-12-04 06:00] LABS: Basophils Percent Auto 0.2 % (0.2-1.2); Eosinophils Absolute Auto 0.1 K/mm3 (0-0.3); Eosinophils Percent Auto 0.4 % (0-4.4); Hematocrit 36.5 % (42.0-52.0); Hemoglobin 11.8 g/dL (14.0-18.0); Immature Granulocyte Absolute 0.06 K/mm3 (0.00-0.031); Immature Granulocyte Percent A 0.5 % (0-0.5); Lymphocytes Absolute Auto 1.31 K/mm3 (0.9-3.2); Lymphocytes Percent Auto 10.7 % (18.3-44.2); Mean Corpuscular HGB Conc 32.3 g/dl (32-36); Mean Corpuscular Hemoglobin 30.6 pg (26-34); Mean Corpuscular Volume 94.8 fl (80-100); Mean Platelet Volume 9.4 fl (7.4-10.4); Monocytes Absolute Auto 0.7 K/mm3 (0.1-0.6); Monocytes Percent Auto 5.8 % (2.6-8.5); Neutrophils Absolute Auto 10.1 K/mm3 (1.3-6.7); Neutrophils Percent Auto 82.4 % (45.5-73.1); Platelet Count Result 327 k/mm3 (150-375); Red Blood Count 3.85 M/mm3 (4.6-6.20); Red Cell Distribution Width 14.3 % (11.5-14.5); White Blood Count 12.3 K/mm3 (4.5-10.0)
[2021-12-04 06:19] LABS: Alanine Aminotransferase 112 U/L (6-50); Albumin Level 3.4 g/dL (3.5-5.1); Alkaline Phosphatase 156 U/L (38-126); Anion Gap 6 mmol/L (8-16); Aspartate Amino Transferase 65 U/L (17-59); Bilirubin,Total 1.3 mg/dL (0.2-1.3); Blood Urea Nitrogen 12 mg/dL (9-20); Calcium 8.1 mg/dL (8.4-10.2); Carbon Dioxide 27 mmol/L (22-30); Chloride 103 mmol/L (98-107); Estimated CRCL calculation 75 ml/min; Estimated Glomerular Filt Rate > 60; Glucose 121 mg/dL (65-110); Lipase 1030 U/L (23-300); Magnesium 1.8 mg/dL (1.6-2.3); Potassium 3.5 mmol/L (3.4-5.0); Sodium 136 mmol/L (137-145)
[2021-12-04] MEDS: SODIUM CHLORIDE 0.9% IV 1,000 ML 125 ML IV CONT (08:12)
[2021-12-04] MEDS: PANTOPRAZOLE SODIUM IV 40 MG VIAL IV PUSH (08:12)
[2021-12-04] MEDS: LACTATED RINGERS 1,000 ML 150 ML IV CONT (10:50)
--- NOTE | 2021-12-04 11:12 | WPDANESEPPF ---
Anes - Initial Pre Proc Eval Procedure: Operation Date: 12/04/21 14:30 Proposed Procedures p Endoscopic Retro Cholangiopancreatogram - Carlos Harris MD Date/Time: 12/04/21 11:12 Surgeon: Berlin Denny MD Pre Op Diagnosis: pancreatitis,common bile duct stone Patient Data Age: 56 Gender: M Height: 1.73 m Weight: 98.1 kg Last Vital Signs Temp 98.1 F 12/04/21 10:47 Pulse 70 12/04/21 10:47 Resp 20 12/04/21 10:47 BP 157/73 H 12/04/21 10:47 Pulse Ox 97 12/04/21 10:47 O2 Del Method Room Air 12/04/21 10:47 Allergies Allergy/AdvReac Type Severity Reaction Status Date / Time No Known Allergies Allergy Verified 12/04/21 10:43 Home Medications Medication Instructions Recorded Confirmed Type No Home Medications 12/02/21 12/04/21 History Laboratory Tests 12/04/21 12/04/21 05:40 05:40 WBC 12.3 K/mm3 H K/mm3 (4.5-10.0) RBC 3.85 M/mm3 L M/mm3 (4.6-6.20) Hgb 11.8 g/dL L g/dL (14.0-18.0) Hct 36.5 % L % (42.0-52.0) MCV 94.8 fl fl (80-100) MCH 30.6 pg pg (26-34) MCHC 32.3 g/dl g/dl (32-36) RDW 14.3 % % (11.5-14.5) Plt Count 327 k/mm3 k/mm3 (150-375) MPV 9.4 fl fl (7.4-10.4) Immature Gran % (Auto) 0.5 % % (0-0.5) Neut % (Auto) 82.4 % H % (45.5-73.1) Lymph % (Auto) 10.7 % L % (18.3-44.2) Stephens % (Auto) 5.8 % % (2.6-8.5) Eos % (Auto) 0.4 % % (0-4.4) Baso % (Auto) 0.2 % % (0.2-1.2) Lymph # (Auto) 1.31 K/mm3 K/mm3 (0.9-3.2) Stephens # (Auto) 0.7 K/mm3 H K/mm3 (0.1-0.6) Eos # (Auto) 0.1 K/mm3 K/mm3 (0-0.3) Baso # (Auto) 0.0 K/mm3 K/mm3 (0.0-0.1) Abs Immat Gran (auto) 0.06 K/mm3 H K/mm3 (0.00-0.031) Absolute Neuts (auto) 10.1 K/mm3 H K/mm3 (1.3-6.7) Absolute Nucleated RBC 0.0 K/mm3 K/mm3 (0.0-0.012) Nucleated RBC % 0.0 % % (0.0-0.2) Sodium 136 mmol/L L mmol/L (137-145) Potassium 3.5 mmol/L mmol/L (3.4-5.0) Chloride 103 mmol/L mmol/L (98-107) Carbon Dioxide 27 mmol/L mmol/L (22-30) Anion Gap 6 mmol/L L mmol/L (8-16) BUN 12 mg/dL mg/dL (9-20) Creatinine 1.10 mg/dL mg/dL (0.7-1.3) Estim Creat Clear Calc 75 ml/min ml/min Estimated GFR > 60 (59 - ) Glucose 121 mg/dL H mg/dL (65-110) Calcium 8.1 mg/dL L mg/dL (8.4-10.2) Magnesium 1.8 mg/dL mg/dL (1.6-2.3) Total Bilirubin 1.3 mg/dL mg/dL (0.2-1.3) AST 65 U/L H U/L (17-59) ALT 112 U/L H U/L (6-50) Alkaline Phosphatase 156 U/L H U/L (38-126) Total Protein 6.0 g/dL L g/dL (6.3-8.2) Albumin 3.4 g/dL L g/dL (3.5-5.1) Lipase 1030 U/L H U/L (23-300) Patient hx anesthesia problems: none Family hx anesthesia problems: none Results Review: All pre-operative results and documents have been reviewed as part of the pre-operative evaluation. FOR[facility] Past Medical History Medical History (Updated 12/03/21 @ 13:49 by Carlos Harris MD) Anemia Elevated liver enzymes Sleep apnea Compliant with CPAP Surgical History Surgical History History of carpal tunnel surgery Family History Family History Father Family history of diabetes mellitus in first degree relative Mother Cancer Other Family history of malignant neoplasm Hypertension Social History Social History Smoking status: Never smoker Second hand tobacco smoke exposure: No Alcohol intake: current Drinks per week: 4 Substance use: never Substance use type: does not use Gender identity (if verbalized by the patient): Male Sexual Orientation (if Verbalized by the Patient): Straight or Heterosexual Spiritu
--- NOTE | 2021-12-04 14:39 | PM.PNGS ---
Progress Note: A&P Assessment and Plan (1) Acute biliary pancreatitis: Code(s): K85.10 - Biliary acute pancreatitis without necrosis or infection Status: Acute Assessment and Plan: S/p ERCP today with no stones found in the common bile duct. LFTs trending down and lipase down to 1,030 today. Likely already passed the stone. Will repeat labs tomorrow and work on tentatively adding the patient onto the surgery schedule tomorrow for a laparoscopic cholecystectomy, possible open, by Dr. Tang. (2) Choledocholithiasis: Code(s): K80.50 - Calculus of bile duct without cholangitis or cholecystitis without obstruction Status: Acute (3) Cholelithiasis: Code(s): K80.20 - Calculus of gallbladder without cholecystitis without obstruction Status: Acute (4) Obesity (BMI 30-39.9): Code(s): E66.9 - Obesity, unspecified Status: Acute (5) Sleep apnea: Code(s): G47.30 - Sleep apnea, unspecified Status: Acute Plan I have discussed the patient's case and plan of care with Dr. Tang. Subjective Subjective Date/Time Seen: 12/04/21 14:39 Patient reports: no new complaints, feels better, pain is less and afebrile Interval history: Patient seen and examined status post ERCP. Still having some upper abdominal pain, but much improved compared to yesterday. No nausea or vomiting today. Review of Systems Review of Systems: All systems reviewed & are unremarkable except as noted in HPI and below Exam Const: General: comfortable, no acute distress and awake Orientation/consciousness: patient oriented x3 GI: Inspection: non-distended and no visible herniation GI Palp: Yes Soft to palpation, Yes Tenderness to palpation present (GI) (Across the upper abdomen), No Guarding due to palpation present (GI) and No Rebound tenderness present Auscultation: normal bowel sounds Extrem: General: normal to inspection and no edema Psych: Mental Status: mental status grossly normal Insight: Good insight present (Psych) Objective Data Vital Signs Vital Signs: Vital Signs - 24 hr 12/03/21 20:14 12/03/21 20:00 12/04/21 04:41 Temperature 98.7 F 98 F Pulse Rate 64 68 Respiratory Rate 16 20 Blood Pressure 138/72 125/68 Pulse Oximetry 93 96 Oxygen Delivery Room Air Oxygen Flow Rate 12/04/21 10:47 12/04/21 08:00 12/04/21 12:38 Temperature 98.1 F 98.2 F Pulse Rate 70 70 72 Respiratory Rate 20 20 21 H Blood Pressure 157/73 H 134/73 Pulse Oximetry 97 97 100 Oxygen Delivery Room Air Room Air Simple Face Mask Oxygen Flow Rate 6 12/04/21 12:48 12/04/21 12:58 12/04/21 13:08 Temperature Pulse Rate 67 68 71 Respiratory Rate 19 17 21 H Blood Pressure 136/65 136/67 138/67 Pulse Oximetry 95 95 99 Oxygen Delivery Room Air Room Air Room Air Oxygen Flow Rate 12/04/21 13:18 12/04/21 13:28 12/04/21 13:38 Temperature Pulse Rate 62 61 62 Respiratory Rate 19 21 H 20 Blood Pressure 131/67 136/67 137/67 Pulse Oximetry 96 95 96 Oxygen Delivery Room Air Room Air Room Air Oxygen Flow Rate 12/04/21 14:00 Temperature 98.3 F Pulse Rate 60 Respiratory Rate 16 Blood Pressure 156/63 H Pulse Oximetry 95 Oxygen Delivery Oxygen Flow Rate Intake/Output Intake/Output: Intake & Output 12/01/21 12/02/21 12/03/21 12/04/21 23:59 23:59 23:59 23:59 Intake Total 3200 1200 Balance 3200 1200 Meds/Results Medications: Active Medications Generic Name Dose Route Start Last Admin Trade Name Freq PRN Reason Stop Dose Admin Piperacillin/Tazobactam/Dextrose 3.375 gm in 50 mls @ 100 mls/hr 12/03/21 08:00 12/04/21 08:12 Zosyn 3.375 Gm/D5w 50ml Pm IVPB 100 mls/hr Q6H DOMINIQUE Administration Sodium Chloride 1,000 mls @ 125 mls/hr 12/03/21 02:05 12/04/21 08:12 Normal Saline Iv IV CONT 125 mls/hr .Q8H DOMINIQUE Administration Morphine Sulfate 4 mg 12/03/21 02:04 12/03/21 10:45 Morphine Sulfate (*Crx) 4 Mg/Ml Inj IV PUSH 4 m
--- NOTE | 2021-12-04 16:17 | WPDANESEPPF ---
Anes - Initial Pre Proc Eval Procedure: Operation Date: 12/04/21 14:30 Proposed Procedures p Endoscopic Retro Cholangiopancreatogram - Carlos Harris MD Operation Date: 12/05/21 14:00 Proposed Procedures p Laparoscopic Cholecystectomy,Possible Open - Dar Tang DO Date/Time: 12/04/21 16:17 Surgeon: [place] Denny MD Pre Op Diagnosis: pancreatitis,common bile duct stone Patient Data Age: 56 Gender: M Height: 1.73 m Weight: 98.1 kg Last Vital Signs Temp 36.8 C 12/04/21 14:00 Pulse 60 12/04/21 14:00 Resp 16 12/04/21 14:00 BP 156/63 H 12/04/21 14:00 Pulse Ox 95 12/04/21 14:00 O2 Del Method Room Air 12/04/21 13:38 O2 Flow Rate 6 12/04/21 12:38 Allergies Allergy/AdvReac Type Severity Reaction Status Date / Time No Known Allergies Allergy Verified 12/05/21 12:58 Home Medications Medication Instructions Recorded Confirmed Type No Home Medications 12/02/21 12/04/21 History Laboratory Tests 12/04/21 12/04/21 05:40 05:40 WBC 12.3 K/mm3 H K/mm3 (4.5-10.0) RBC 3.85 M/mm3 L M/mm3 (4.6-6.20) Hgb 11.8 g/dL L g/dL (14.0-18.0) Hct 36.5 % L % (42.0-52.0) MCV 94.8 fl fl (80-100) MCH 30.6 pg pg (26-34) MCHC 32.3 g/dl g/dl (32-36) RDW 14.3 % % (11.5-14.5) Plt Count 327 k/mm3 k/mm3 (150-375) MPV 9.4 fl fl (7.4-10.4) Immature Gran % (Auto) 0.5 % % (0-0.5) Neut % (Auto) 82.4 % H % (45.5-73.1) Lymph % (Auto) 10.7 % L % (18.3-44.2) Bibb % (Auto) 5.8 % % (2.6-8.5) Eos % (Auto) 0.4 % % (0-4.4) Baso % (Auto) 0.2 % % (0.2-1.2) Lymph # (Auto) 1.31 K/mm3 K/mm3 (0.9-3.2) Bibb # (Auto) 0.7 K/mm3 H K/mm3 (0.1-0.6) Eos # (Auto) 0.1 K/mm3 K/mm3 (0-0.3) Baso # (Auto) 0.0 K/mm3 K/mm3 (0.0-0.1) Abs Immat Gran (auto) 0.06 K/mm3 H K/mm3 (0.00-0.031) Absolute Neuts (auto) 10.1 K/mm3 H K/mm3 (1.3-6.7) Absolute Nucleated RBC 0.0 K/mm3 K/mm3 (0.0-0.012) Nucleated RBC % 0.0 % % (0.0-0.2) Sodium 136 mmol/L L mmol/L (137-145) Potassium 3.5 mmol/L mmol/L (3.4-5.0) Chloride 103 mmol/L mmol/L (98-107) Carbon Dioxide 27 mmol/L mmol/L (22-30) Anion Gap 6 mmol/L L mmol/L (8-16) BUN 12 mg/dL mg/dL (9-20) Creatinine 1.10 mg/dL mg/dL (0.7-1.3) Estim Creat Clear Calc 75 ml/min ml/min Estimated GFR > 60 (59 - ) Glucose 121 mg/dL H mg/dL (65-110) Calcium 8.1 mg/dL L mg/dL (8.4-10.2) Magnesium 1.8 mg/dL mg/dL (1.6-2.3) Total Bilirubin 1.3 mg/dL mg/dL (0.2-1.3) AST 65 U/L H U/L (17-59) ALT 112 U/L H U/L (6-50) Alkaline Phosphatase 156 U/L H U/L (38-126) Total Protein 6.0 g/dL L g/dL (6.3-8.2) Albumin 3.4 g/dL L g/dL (3.5-5.1) Lipase 1030 U/L H U/L (23-300) Patient hx anesthesia problems: none Family hx anesthesia problems: none Results Review: All pre-operative results and documents have been reviewed as part of the pre-operative evaluation. [facility] Past Medical History Medical History (Updated 12/03/21 @ 13:49 by Carlos Harris MD) Anemia Elevated liver enzymes Sleep apnea Compliant with CPAP Surgical History Surgical History History of carpal tunnel surgery Family History Family History Father Family history of diabetes mellitus in first degree relative Mother Cancer Other Family history of malignant neoplasm Hypertension Social History Social History Smoking status: Never smoker Second hand tobacco smoke exposure: No Alcohol intake: current Drinks per week: 4 Substance use: never Substance use type
--- NOTE | 2021-12-04 16:31 | PM.IMPN ---
Progress Note: A&P Assessment and Plan (1) Cholelithiasis: Code(s): K80.20 - Calculus of gallbladder without cholecystitis without obstruction Status: Acute (2) Abdominal pain: Code(s): R10.9 - Unspecified abdominal pain Status: Acute (3) Nausea and vomiting: Code(s): R11.2 - Nausea with vomiting, unspecified Status: Acute Plan # acute biliary pancreatitis: Lipase more than 40,000 admission. lipase level improving. Evidence of pancreatitis on CT. Associated choledocholithiasis with distal common bile duct stone. LFTs elevated as well. GI consulted and Status post ERCP with no evidence of choledocholithiasis. General surgery on board for planned cholecystectomy in a.m. on Zosyn IV . NPO after midnight. Lower his IV fluid to 75 cc an hour. Clear liquid diet to full liquid tonight. # cholelithiasis # sleep apnea # DVT prophylaxis SCDs # code status full code Subjective Date/time seen: 12/04/21 16:31 Interval history: 12/03/2021: Patient presented with abdominal pain. Prior history of gallstones. labs with leukocytosis of 16,000. lipase elevated more than 40,000 with elevated AST ALT and alk phosphatase. UA negative. CT abdomen pelvis with acute uncomplicated pancreatitis likely secondary to obstructing distal common bile duct stone along with cholelithiasis. social alcohol use. No prior episodes of pancreatitis. GI And General surgery has been consulted.ERCP planned tomorrow. Today the clear liquid Diet that he tried did not work so well. He is a little bit more sore currently in his belly. Denies any nausea or vomiting. 12/04/2021: no overnight events. ERCP done with no evidence of choledocholithiasis. no fever, chills. Review of Systems Review of Systems: All systems reviewed & are unremarkable except as noted in HPI and below Exam Narrative: GENERAL: Well-appearing, well-nourished, and in no acute distress. HEAD: Normocephalic, atraumatic. EYES: PERRLA and EOMI. ENT: Nares clear, no rhinorrhea or epistaxis.? Mucous membranes moist. NECK: Supple. nontender CHEST: Clear to auscultation.? No respiratory distress. HEART: Regular rate and rhythm.? No murmur heard.? Normal peripheral pulses. ABDOMEN: Soft, tender epigastric and right upper quadrant area, nondistended, normal active bowel sounds. EXTREMITIES: Normal range of motion.? No edema. SKIN: Warm, dry, no rash. NEURO: No focal deficits.? Alert and oriented x3. PSYCH: Normal mood and affect. Objective Data Vital Signs Vital Signs: Vital Signs - 24 hr 12/03/21 20:14 12/03/21 20:00 12/04/21 04:41 Temperature 98.7 F 98 F Pulse Rate 64 68 Respiratory Rate 16 20 Blood Pressure 138/72 125/68 Pulse Oximetry 93 96 Oxygen Delivery Room Air Oxygen Flow Rate 12/04/21 10:47 12/04/21 08:00 12/04/21 12:38 Temperature 98.1 F 98.2 F Pulse Rate 70 70 72 Respiratory Rate 20 20 21 H Blood Pressure 157/73 H 134/73 Pulse Oximetry 97 97 100 Oxygen Delivery Room Air Room Air Simple Face Mask Oxygen Flow Rate 6 12/04/21 12:48 12/04/21 12:58 12/04/21 13:08 Temperature Pulse Rate 67 68 71 Respiratory Rate 19 17 21 H Blood Pressure 136/65 136/67 138/67 Pulse Oximetry 95 95 99 Oxygen Delivery Room Air Room Air Room Air Oxygen Flow Rate 12/04/21 13:18 12/04/21 13:28 12/04/21 13:38 Temperature Pulse Rate 62 61 62 Respiratory Rate 19 21 H 20 Blood Pressure 131/67 136/67 137/67 Pulse Oximetry 96 95 96 Oxygen Delivery Room Air Room Air Room Air Oxygen Flow Rate 12/04/21 14:00 Temperature 98.3 F Pulse Rate 60 Respiratory Rate 16 Blood Pressure 156/63 H Pulse Oximetry 95 Oxygen Delivery Oxygen Flow Rate Intake/Output Intake/Output: Intake & Output 12/01/21 12/02/21 12/03/21 12/04/21 23:59 23:59 23:59 23:59 Intake Total 3200 1300 Balance 3200 1300 Meds/Results Medications: Active Medications Generic Name Dose Route Start Last Admin Trade
[2021-12-04] MEDS: HYDROcodone/acetaminophen (*CRX) 5-325 MG TABLET 1 TAB PO (17:43)
[2021-12-04] MEDS: ONDANSETRON INJ 4 MG/2 ML VIAL IV PUSH (17:44)
[2021-12-05] VITALS (11 sets, daily range): BP systolic 151–170; BP diastolic 78–90; PULSE 59–79; RESP 16–20; TEMP 36.6–37.5; O2SAT 92–100
[2021-12-05] MEDS: SODIUM CHLORIDE 0.9% IV 1,000 ML 75 ML IV CONT (00:35)
[2021-12-05 06:19] LABS: Basophils Percent Auto 0.3 % (0.2-1.2); Eosinophils Absolute Auto 0.1 K/mm3 (0-0.3); Eosinophils Percent Auto 0.6 % (0-4.4); Hematocrit 37.7 % (42.0-52.0); Hemoglobin 11.9 g/dL (14.0-18.0); Immature Granulocyte Absolute 0.06 K/mm3 (0.00-0.031); Immature Granulocyte Percent A 0.4 % (0-0.5); Lymphocytes Absolute Auto 1.13 K/mm3 (0.9-3.2); Lymphocytes Percent Auto 8.2 % (18.3-44.2); Mean Corpuscular HGB Conc 31.6 g/dl (32-36); Mean Corpuscular Hemoglobin 31.1 pg (26-34); Mean Corpuscular Volume 98.4 fl (80-100); Mean Platelet Volume 9.8 fl (7.4-10.4); Monocytes Absolute Auto 0.9 K/mm3 (0.1-0.6); Monocytes Percent Auto 6.6 % (2.6-8.5); Neutrophils Absolute Auto 11.6 K/mm3 (1.3-6.7); Neutrophils Percent Auto 83.9 % (45.5-73.1); Platelet Count Result 300 k/mm3 (150-375); Red Blood Count 3.83 M/mm3 (4.6-6.20); White Blood Count 13.8 K/mm3 (4.5-10.0)
[2021-12-05 06:29] LABS: Alanine Aminotransferase 114 U/L (6-50); Albumin Level 3.6 g/dL (3.5-5.1); Alkaline Phosphatase 199 U/L (38-126); Anion Gap 11 mmol/L (8-16); Aspartate Amino Transferase 65 U/L (17-59); Bilirubin,Total 2.1 mg/dL (0.2-1.3); Blood Urea Nitrogen 10 mg/dL (9-20); Calcium 8.4 mg/dL (8.4-10.2); Carbon Dioxide 26 mmol/L (22-30); Chloride 101 mmol/L (98-107); Estimated CRCL calculation 82 ml/min; Estimated Glomerular Filt Rate > 60; Glucose 121 mg/dL (65-110); Potassium 3.5 mmol/L (3.4-5.0); Sodium 138 mmol/L (137-145)
[2021-12-05] MEDS: PANTOPRAZOLE SODIUM IV 40 MG VIAL IV PUSH (08:28)
--- NOTE | 2021-12-05 08:57 | P.PNAN_ITS ---
Anes - Prog Note Post-Op Date/Time: 12/05/21 08:57 Cardiovascular status: normal Respiratory status: normal Airway patency: baseline Mental status: baseline Post-Op hydration status: normal Vital Signs: Last Vital Signs Temp 98.4 F 12/04/21 21:48 Pulse 51 L 12/04/21 21:48 Resp 16 12/04/21 21:48 BP 147/75 H 12/04/21 21:48 Pulse Ox 98 12/04/21 21:48 O2 Del Method Room Air 12/04/21 20:00 O2 Flow Rate 6 12/04/21 12:38 Pain Score (VAS): 0/10 I/O: Intake & Output 12/04/21 12/05/21 12/05/21 23:59 07:59 15:59 Intake Total 1640 290 Balance 1640 290 Laboratory Tests 12/05/21 05:36 12/05/21 05:36 12/05/21 12/05/21 12/05/21 05:36 05:36 05:36 WBC 13.8 H RBC 3.83 L Hgb 11.9 L Hct 37.7 L MCV 98.4 MCH 31.1 MCHC 31.6 L RDW 14.0 Plt Count 300 MPV 9.8 Immature Gran % (Auto) 0.4 Neut % (Auto) 83.9 H Lymph % (Auto) 8.2 L Burnett % (Auto) 6.6 Eos % (Auto) 0.6 Baso % (Auto) 0.3 Lymph # (Auto) 1.13 Burnett # (Auto) 0.9 H Eos # (Auto) 0.1 Baso # (Auto) 0.0 Abs Immat Gran (auto) 0.06 H Absolute Neuts (auto) 11.6 H Absolute Nucleated RBC 0.0 Nucleated RBC % 0.0 Sodium 138 Potassium 3.5 Chloride 101 Carbon Dioxide 26 Anion Gap 11 BUN 10 Creatinine 1.00 Estim Creat Clear Calc 82 Estimated GFR > 60 Glucose 121 H Calcium 8.4 Magnesium 2.0 Cancelled Total Bilirubin 2.1 H AST 65 H ALT 114 H Alkaline Phosphatase 199 H Total Protein 7.0 Albumin 3.6 Blood Type Antibody Screen 12/05/21 05:36 WBC RBC Hgb Hct MCV MCH MCHC RDW Plt Count MPV Immature Gran % (Auto) Neut % (Auto) Lymph % (Auto) Burnett % (Auto) Eos % (Auto) Baso % (Auto) Lymph # (Auto) Burnett # (Auto) Eos # (Auto) Baso # (Auto) Abs Immat Gran (auto) Absolute Neuts (auto) Absolute Nucleated RBC Nucleated RBC % Sodium Potassium Chloride Carbon Dioxide Anion Gap BUN Creatinine Estim Creat Clear Calc Estimated GFR Glucose Calcium Magnesium Total Bilirubin AST ALT Alkaline Phosphatase Total Protein Albumin Blood Type O Positive Antibody Screen Negative Post-procedural complaints: none Patient Feedback: Patient satisfied with anesthetic care.
[2021-12-05] MEDS: CHLORHEXIDINE GLUCONATE 4% SOL 120 ML BTL 1 APPLIC TOPICAL (10:00)
--- NOTE | 2021-12-05 12:35 | WPDGIPROGNO ---
Progress Note: A&P Assessment and Plan (1) Acute biliary pancreatitis: Code(s): K85.10 - Biliary acute pancreatitis without necrosis or infection Status: Acute Assessment and Plan: ercp yesterday with sphincterotomy with swiping bile duct multiple times, no stones lap wong today (2) Abdominal pain: Code(s): R10.9 - Unspecified abdominal pain Status: Acute Assessment and Plan: similar, medical support (3) Cholelithiasis: Code(s): K80.20 - Calculus of gallbladder without cholecystitis without obstruction Status: Acute (4) Elevated liver enzymes: Code(s): R74.8 - Abnormal levels of other serum enzymes Status: Acute Assessment and Plan: trending Subjective Date/time seen: 12/05/21 12:35 Interval history: ercp yesterday with sphincterotomy and clear bile duct after sweeping. Today similar abdominal pain Review of Systems Review of Systems: All systems reviewed & are unremarkable except as noted in HPI and below Exam Narrative: GENERAL: Well-appearing, well-nourished, and in no acute distress. HEAD: Normocephalic, atraumatic. EYES: PERRLA and EOMI. ENT: Nares clear, no rhinorrhea or epistaxis.? Mucous membranes moist. NECK: Supple. nontender CHEST: Clear to auscultation.? No respiratory distress. HEART: Regular rate and rhythm.? No murmur heard.? Normal peripheral pulses. ABDOMEN: Soft, tender epigastric and right upper quadrant area, nondistended, normal active bowel sounds. EXTREMITIES: Normal range of motion.? No edema. SKIN: Warm, dry, no rash. NEURO: No focal deficits.? Alert and oriented x3. PSYCH: Normal mood and affect. Objective Data Vital Signs Vital Signs: Vital Signs - 24 hr 12/04/21 12:38 12/04/21 12:48 12/04/21 12:58 Temperature 98.2 F Pulse Rate 72 67 68 Respiratory Rate 21 H 19 17 Blood Pressure 134/73 136/65 136/67 Pulse Oximetry 100 95 95 Oxygen Delivery Simple Face Mask Room Air Room Air Oxygen Flow Rate 6 12/04/21 13:08 12/04/21 13:18 12/04/21 13:28 Temperature Pulse Rate 71 62 61 Respiratory Rate 21 H 19 21 H Blood Pressure 138/67 131/67 136/67 Pulse Oximetry 99 96 95 Oxygen Delivery Room Air Room Air Room Air Oxygen Flow Rate 12/04/21 13:38 12/04/21 14:00 12/04/21 17:00 Temperature 98.3 F 98.1 F Pulse Rate 62 60 65 Respiratory Rate 20 16 16 Blood Pressure 137/67 156/63 H 177/77 H Pulse Oximetry 96 95 95 Oxygen Delivery Room Air Oxygen Flow Rate 12/04/21 21:48 12/04/21 20:00 12/05/21 09:40 Temperature 98.4 F 99.3 F Pulse Rate 51 L 62 Respiratory Rate 16 16 Blood Pressure 147/75 H 161/80 H Pulse Oximetry 98 96 Oxygen Delivery Room Air Oxygen Flow Rate Intake/Output Intake/Output: Intake & Output 12/02/21 12/03/21 12/04/21 12/05/21 23:59 23:59 23:59 23:59 Intake Total 3200 2940 340 Balance 3200 2940 340 Meds/Results Medications: Active Medications Generic Name Dose Route Start Last Admin Trade Name Freq PRN Reason Stop Dose Admin Fentanyl Citrate 25 mcg 12/04/21 16:17 Fentanyl Citrate Inj (*Crx) 100 Mcg/2 Ml Vial IV PUSH Q2M PRN Pain Piperacillin/Tazobactam/Dextrose 3.375 gm in 50 mls @ 100 mls/hr 12/03/21 08:00 12/05/21 08:57 Zosyn 3.375 Gm/D5w 50ml Pm IVPB Infused Q6H DOMINIQUE Infusion Sodium Chloride 1,000 mls @ 75 mls/hr 12/03/21 02:05 12/05/21 00:35 Normal Saline Iv IV CONT 75 mls/hr .[id number] DOMINIQUE Administration Lactated Ringer's 1,000 mls @ 30 mls/hr 12/04/21 16:20 Lr - Lactated Ringers Iv IV CONT .Q24H DOMINIQUE Lactated Ringer's 1,000 mls @ 30 mls/hr 12/04/21 16:20 Lr - Lactated Ringers Iv IV CONT .Q24H DOMINIQUE Morphine Sulfate 4 mg 12/03/21 02:04 12/03/21 10:45 Morphine Sulfate (*Crx) 4 Mg/Ml Inj IV PUSH 4 mg Q2H PRN Administration Pain Rated 7-10 Morphine Sulfate 2 mg 12/03/21 13:24 12/04/21 01:04 Morphine Sulfate (*Crx) 2 Mg/Ml Inj IV PUSH 2 mg Q2H PRN
[2021-12-05] MEDS: LACTATED RINGERS 1,000 ML 30 ML IV CONT (13:30)
--- NOTE | 2021-12-05 13:30 | PC.NURSE ---
To OR per bed at 1245, IV saline locked. Report given to MARTHA Solorio.
--- NOTE | 2021-12-05 14:01 | WPDHPUPDATE1 ---
History and Physical Update Update Date/Time: 12/05/21 14:01 History and Physical has been reviewed, including an updated exam of the patient. There are NO changes in the patient's condition. Risks, benefits, and alternatives have been discussed and questions answered. Patient agrees to proceed with procedure.
[2021-12-05] MEDS: BUPIVACAINE/EPINEPHRINE 0.25% 50 ML VIAL INFILTRATE (16:29)
--- NOTE | 2021-12-05 16:55 | W.PM.PROC2 ---
Procedure Note - Detailed Date of Procedure 12/05/21 Pre-op Diagnosis Acute biliary pancreatitis, cholelithiasis Post-op Diagnosis Same Procedure Performed Laparoscopic Cholecystectomy Surgeon Dar Tang, DO Anesthesia General and Local (0.5% bupivacaine) Indications This is a 56-year-old man who presented to the emergency department 2 days ago with upper abdominal pain with the nausea. Imaging showed evidence of cholelithiasis and acute pancreatitis. There was also suggestion of a common bile duct stone on the CT. He was admitted for further treatment. GI evaluated the patient and he underwent ERCP on 12/04/2021. No common bile duct stones were visualized. Decision was then made to proceed with laparoscopic cholecystectomy, possible open. Findings Laparoscopic cholecystectomy was performed. The gallbladder was slightly dilated but no other significant abnormalities were noted. The cystic duct appeared normal in size. There was some spillage of bile as the gallbladder was dissected off of the liver bed. There were a couple small particle stones that were suctioned with the suction art objects supervisor. No other significant stones were identified. The gallbladder was removed and sent to the lab for pathology. Description of Procedure Procedure as well as risks, benefits, and alternatives were discussed with patient. Written consent was obtained and placed in chart prior to procedure. The patient was brought back to surgical suite. Patient was placed in supine position on operating table. Time-out was done to confirm patient and procedure. Patient was then intubated by the anesthesia department. Abdomen was prepped and draped in sterile fashion using chlorhexidine prep. 0.5% bupivacaine with epinephrine was infiltrated at each site of incision. A 5 millimeter incision was made near the umbilicus, and a 5 millimeter Optiview trocar was advanced through the abdominal layers under direct visualization. Once inside the abdominal cavity, carbon dioxide was insufflated to create a pneumoperitoneum. The camera was inserted and the abdomen was inspected. No immediate abnormalities were identified. The patient was placed in reverse Trendelenburg position and rotated slightly to the left. An 11 millimeter incision was made in the subxiphoid region, and an 11 millimeter trocar was inserted under direct visualization. Two 5 millimeter incisions were made in the right upper quadrant, and two 5 millimeter trocars were inserted under direct visualization. The gallbladder was identified and grasped at the fundus and retracted superiorly. It was then grasped at the infundibulum retracted laterally. Careful dissection around the neck of the gallbladder was performed using blunt dissection with a [place] grasper and hook electrocautery. The cystic duct was identified, and a window was created behind it. The cystic artery was also identified and a window was created behind it. The critical view of safety was identified, visualizing the cystic duct running directly into the neck of the gallbladder, and the cystic artery running directly into the wall of the gallbladder. A 5 millimeter clip lump receiver was then used to place 2 clips proximally and 1 clip distally on both the cystic duct and cystic artery. They were then both transected using endoscopic scissors. Once safely away from the mandi hepatitis, the gallbladder was dissected free from the liver bed using hook electrocautery. Hemostasis was achieved along the way. The gallbladder was removed completely and then removed through the subxiphoid port. The liver bed was then inspected. Hemostasis appeared adequate, and our clips appeared secure. The area was gently irrigated with sterile saline. No other abnormalities were seen. The patient was flattened out in bed, and 1 final inspection was made around the abdominal cavity. The subxiphoid port was removed, and a Ashkan Ralph cone was used to approximate the f
--- NOTE | 2021-12-05 17:10 | PM.IMPN ---
Progress Note: A&P Assessment and Plan (1) Cholelithiasis: Code(s): K80.20 - Calculus of gallbladder without cholecystitis without obstruction Status: Acute (2) Abdominal pain: Code(s): R10.9 - Unspecified abdominal pain Status: Acute (3) Nausea and vomiting: Code(s): R11.2 - Nausea with vomiting, unspecified Status: Acute Plan # acute biliary pancreatitis: Lipase more than 40,000 admission. lipase level improving. Evidence of pancreatitis on CT. Associated choledocholithiasis with distal common bile duct stone. LFTs elevated as well. GI consulted and Status post ERCP with no evidence of choledocholithiasis. General surgery on board for planned cholecystectomy in a.m. on Zosyn IV . NPO after midnight. Lower his IV fluid to 75 cc an hour. Clear liquid diet to full liquid tonight. # cholelithiasis # sleep apnea # DVT prophylaxis SCDs # code status full code 12/05/2021 interval history: patient with cholecystitis, seen by surgery service patient is scheduled for cholecystectomy later today, states the pain is controlled, denies any abdominal pain nausea or vomiting Subjective Date/time seen: 12/05/21 17:10 Interval history: 12/03/2021: Patient presented with abdominal pain. Prior history of gallstones. labs with leukocytosis of 16,000. lipase elevated more than 40,000 with elevated AST ALT and alk phosphatase. UA negative. CT abdomen pelvis with acute uncomplicated pancreatitis likely secondary to obstructing distal common bile duct stone along with cholelithiasis. social alcohol use. No prior episodes of pancreatitis. GI And General surgery has been consulted.ERCP planned tomorrow. Today the clear liquid Diet that he tried did not work so well. He is a little bit more sore currently in his belly. Denies any nausea or vomiting. 12/04/2021: no overnight events. ERCP done with no evidence of choledocholithiasis. no fever, chills. 12/05/2021 interval history: patient with cholecystitis, seen by surgery service patient is scheduled for cholecystectomy later today, states the pain is controlled, denies any abdominal pain nausea or vomiting Review of Systems Review of Systems: All systems reviewed & are unremarkable except as noted in HPI and below Exam Narrative: Patient is comfortable, NAD HEENT: eyes are clear and none icteric LUNGS: normal respiratory effort ABD: distended Lower extremities: no edema SKIN: nonjaundiced Neuro: grossly intact. Objective Data Vital Signs Vital Signs: Vital Signs - 24 hr 12/04/21 21:48 12/04/21 20:00 12/05/21 09:40 Temperature 98.4 F 99.3 F Pulse Rate 51 L 62 Respiratory Rate 16 16 Blood Pressure 147/75 H 161/80 H Pulse Oximetry 98 96 Oxygen Delivery Room Air 12/05/21 13:24 Temperature 99.5 F Pulse Rate 59 L Respiratory Rate 16 Blood Pressure 170/83 H Pulse Oximetry 98 Oxygen Delivery Room Air Intake/Output Intake/Output: Intake & Output 12/02/21 12/03/21 12/04/21 12/05/21 23:59 23:59 23:59 23:59 Intake Total 3200 2940 340 Output Total 800 Balance 3200 2940 -460 Meds/Results Medications: Active Medications Generic Name Dose Route Start Last Admin Trade Name Freq PRN Reason Stop Dose Admin Fentanyl Citrate 25 mcg 12/04/21 16:17 Fentanyl Citrate Inj (*Crx) 100 Mcg/2 Ml Vial IV PUSH Q2M PRN Pain Piperacillin/Tazobactam/Dextrose 3.375 gm in 50 mls @ 100 mls/hr 12/03/21 08:00 12/05/21 14:45 Zosyn 3.375 Gm/D5w 50ml Pm IVPB 100 mls/hr Q6H DOMINIQUE Administration Sodium Chloride 1,000 mls @ 75 mls/hr 12/03/21 02:05 12/05/21 00:35 Normal Saline Iv IV CONT 75 mls/hr .[id number] DOMINIQUE Administration Lactated Ringer's 1,000 mls @ 30 mls/hr 12/04/21 16:20 12/05/21 13:30 Lr - Lactated Ringers Iv IV CONT 30 mls/hr .Q24H DOMINIQUE Administration Lactated Ringer's 1,000 mls @ 30 mls/hr 12/04/21 16:20 Lr - Lactated Ringers Iv IV CONT .
--- NOTE | 2021-12-05 18:05 | PC.NURSE ---
Returned from OR per bed at 1800. Report received from MARTHA Delcid.
--- NOTE | 2021-12-05 18:18 | PM.DS ---
DS: Admitting Diagnosis Discharge Date 12/05/2021 Admitting Diagnosis abdominal pain DS: Discharge Diagnosis Discharge Diagnosis (1) Cholelithiasis: Code(s): K80.20 - Calculus of gallbladder without cholecystitis without obstruction Status: Acute (2) Abdominal pain: Code(s): R10.9 - Unspecified abdominal pain Status: Acute (3) Nausea and vomiting: Code(s): R11.2 - Nausea with vomiting, unspecified Status: Acute Plan # acute biliary pancreatitis: Lipase more than 40,000 admission. lipase level improving. Evidence of pancreatitis on CT. Associated choledocholithiasis with distal common bile duct stone. LFTs elevated as well. GI consulted and Status post ERCP with no evidence of choledocholithiasis. General surgery on board for planned cholecystectomy in a.m. on Zosyn IV . NPO after midnight. Lower his IV fluid to 75 cc an hour. Clear liquid diet to full liquid tonight. # cholelithiasis # sleep apnea # DVT prophylaxis SCDs # code status full code 12/05/2021 interval history: patient with cholecystitis, seen by surgery service patient is scheduled for cholecystectomy later today, states the pain is controlled, denies any abdominal pain nausea or vomiting DS: Summary Hospital Course Reason for hospitalization: Chief Complaint: ?abdominal pain Narrative: ?this is a 56-year-old male with past medical history significant for obesity, patient presents to the emergency room due to 1 day duration of epigastric abdominal pain with nausea and vomiting after eating meals patient has not been able to eat anything in ever since launch due to intractable nausea and vomiting every time he eats, denies any fevers, any rigors, any chills, patient has been having abdominal pain? is localized in the epigastric area with radiation to the back and is burning in quality rated at 7/10 in intensity after meals for the last 2 months or so denies any weight loss any change in stool character, preliminary workup was significant for CT of abdomen and pelvis with gallstones.? CBC showed a leukocytosis of 16,000. patient is been admitted for further evaluation management and treatment. Hospital Course: patient with abdominal pain found to have cholecystitis seen by surgery service had a cholecystectomy, patient is seen by surgery clinically stable will discharge the patient today Time Spent with Patient Time attestation: Total time spent providing and/or coordinating discharge services: Exam Narrative: Patient is comfortable, NAD HEENT: eyes are clear and none icteric LUNGS: normal respiratory effort ABD: distended Lower extremities: no edema SKIN: nonjaundiced Neuro: grossly intact. DS: Data Data Completed and Pending Pending studies at discharge: Pending at discharge 12/05/21 16:31 Surgical [PTH] Routine Labs on day of discharge: Labs from last 24 hours 12/05/21 12/05/21 12/05/21 05:36 05:36 05:36 WBC RBC Hgb Hct MCV MCH MCHC RDW Plt Count MPV Immature Gran % (Auto) Neut % (Auto) Lymph % (Auto) Harmon % (Auto) Eos % (Auto) Baso % (Auto) Lymph # (Auto) Harmon # (Auto) Eos # (Auto) Baso # (Auto) Abs Immat Gran (auto) Absolute Neuts (auto) Absolute Nucleated RBC Nucleated RBC % Sodium 138 Potassium 3.5 Chloride 101 Carbon Dioxide 26 Anion Gap 11 BUN 10 Creatinine 1.00 Estim Creat Clear Calc 82 Estimated GFR > 60 Glucose 121 H Calcium 8.4 Magnesium Cancelled 2.0 Total Bilirubin 2.1 H AST 65 H ALT 114 H Alkaline Phosphatase 199 H Total Protein 7.0 Albumin 3.6 Blood Type O Positive Antibody Screen Negative 12/05/21 05:36 WBC 13.8 H RBC 3.83 L Hgb 11.9 L Hct 37.7 L MCV 98.4 MCH 31.1 MCHC 31.6 L RDW 14.0 Plt Count 300 MPV 9.8 Immature Gran % (Auto) 0.4 Neut % (Auto) 83.9 H Lymph % (Auto) 8.2 L Harmon %
[2021-12-05] MEDS: LACTATED RINGERS 1,000 ML 100 ML IV CONT (18:19)
== END 2021-12-05 20:24 | disposition home or self-care (01) | DRG 418 ==
LOC: ANHED 22:54 → ANH3MEDSUR 12-03 02:45
PROVIDERS: Internal Medicine; Internal Medicine Gastroenterology; Surgery; Admitting Provider Internal Medicine; Emergency Provider Emergency Medicine; PCP Internal Medicine; Visit Provider Family Medicine
PROC: BF101ZZ Fluoroscopy of Bile Ducts using Low Osmolar Contrast (ICD-10-PCS; CPT 43260; principal; 2021-12-04 14:00)
PROC: 0FT44ZZ Resection of Gallbladder, Percutaneous Endoscopic Approach (ICD-10-PCS; CPT 47562; principal; 2021-12-05 14:00)
DX: K85.10 Biliary acute pancreatitis without necrosis or infection (principal); K80.10 Calculus of gallbladder with chronic cholecystitis without obstruction; D64.9 Anemia, unspecified; E66.9 Obesity, unspecified; G47.30 Sleep apnea, unspecified; R74.8 Abnormal levels of other serum enzymes; Z20.822 Contact with and (suspected) exposure to COVID-19; Z28.21 Immunization not carried out because of patient refusal; Z68.32 Body mass index [BMI] 32.0-32.9, adult
CPT/HCPCS: 36415; 74177; 74329; 80053; 81001; 83690; 83735; 85025; 86850; 86900; 86901; 88304; 96361; 96365; 96366; 96374; 96375; 99285; A9270; C9113; C9803; G0378; J0330; J1100; J1885; J2001; J2250; J2270; J2405; J2543; J2704; J2710; J3010; J7030; J7120; Q9967; U0003; U0005

== ENCOUNTER 2022-06-25 14:51 | Emergency (ER) | payer OTHER, SELFPAY ==
--- NOTE | ~2022-06-25 | XR_ITS ---
XR hand LT min 3V 06/25/2022 16:27 INDICATION: Left hand pain. Laceration fourth finger. PROCEDURE: 3 views left hand COMPARISON: No prior studies for comparison. FINDINGS: Fracture, dislocation or subluxation is not identified. There is mild polyarticular osteoar thritis. There are small loose bodies adjacent to the third metacarpal head, possibly degenerative. No foreign bodies are identified. IMPRESSION: 1: NO ACUTE BONE OR JOINT ABNORMALITY IDENTIFIED. Reviewed, dictated and finalized at location A.
[2022-06-25 15:20] VITALS: BP 162/76; PULSE 82; RESP 16; TEMP 36.7; O2SAT 97
[2022-06-25] MEDS: TETANUS,DIPHTHERIA,AC PERTUSSIS ADULT (0.5 ML) BOOSTRIX IM (16:18)
--- NOTE | 2022-06-25 16:20 | ED.GENADULT ---
HPI - General Adult General Chief complaint: Skin/Abscess/Foreign Body Stated complaint: L hand laceration Time Seen by Provider: 06/25/22 16:02 Source: patient Mode of arrival: ambulatory Limitations: no limitations History of Present Illness HPI narrative: This is a 56-year-old male presents to the ED with chief complaint of a left fourth finger wound that occurred just prior to arrival. He was cutting wire with a utility knife and cut the volar side of the left fourth finger. Reports bleeding at the time however has been able to control now. Denies numbness or weakness. Tetanus status is not up-to-date. Denies any further site of pain or injury. Related Data Allergies Allergy/AdvReac Type Severity Reaction Status Date / Time No Known Allergies Allergy Verified 06/25/22 15:23 Review of Systems Review of Systems: CONSTITUTIONAL: Denies fever, chills, or sweats. SKIN: See HPI. MUSCULOSKELETAL: Denies back pain, joint pain, or myalgia. NEUROLOGIC: Denies headache, numbness, dizziness, or weakness. PSYCHIATRIC: Denies anxiety or depression. [facility] Past Medical History Medical History (Updated 06/25/22 @ 16:21 by Josh Barrios PA-C) Anemia Elevated liver enzymes Sleep apnea Compliant with CPAP Surgical History Surgical History (Updated 12/21/21 @ 10:13 by Helene Holland [facility]) History of carpal tunnel surgery Hx laparoscopic cholecystectomy 12/05/21 Family History Family History Father Family history of diabetes mellitus in first degree relative Mother Cancer Other Family history of malignant neoplasm Hypertension Social History Social History Smoking status: Never smoker Second hand tobacco smoke exposure: No Alcohol intake: current Drinks per week: 4 Substance use: never Substance use type: does not use Living arrangements: with family Gender identity (if verbalized by the patient): Male Sexual Orientation (if Verbalized by the Patient): Straight or Heterosexual Spiritual care concerns: No Exam Narrative: GENERAL: Well-appearing, well-nourished, and in no acute distress. HEAD: Normocephalic, atraumatic. EXTREMITIES: Normal range of motion. No edema. SKIN: 1.5 cm laceration to the volar aspect of the left fourth finger proximally. Bleeding controlled. No obvious foreign body. Edges of the wound are very well approximated at this time. Hands are soiled with dirt and paint. Skin exam is otherwise intact. Warm, dry, no rash. NEURO: Alert and oriented x3. No focal deficits. PSYCH: Normal mood and affect. Course Vital Signs Vital signs: Vital Signs Temperature 98.0 F 06/25/22 15:20 Pulse Rate 82 06/25/22 15:20 Respiratory Rate 16 06/25/22 15:20 Blood Pressure 162/76 H 06/25/22 15:20 Pulse Oximetry 97 06/25/22 15:20 Oxygen Delivery Room Air 06/25/22 15:20 Temperature 98.0 F 06/25/22 15:20 Pulse Rate 68 06/25/22 17:08 Respiratory Rate 16 06/25/22 17:08 Blood Pressure 130/78 06/25/22 17:08 Pulse Oximetry 100 06/25/22 17:08 Oxygen Delivery Room Air 06/25/22 15:20 Procedures Laceration Laceration 1: Date: 06/25/22 Time: 17:34 Site: hand Side (If applicable): left (L 4th digit) Size (cm): 1.5 Description: linear and contaminated Depth: simple, single layer Local Anesthetic: none Pre-repair: wound explored and irrigated extensively ====== Skin Level ====== Skin layer closed with: dermabond Number of sutures: 0 ====== Subcutaneous Layer ====== ====== Muscle Layer ====== ====== Tendon Layer ====== Dressing: simple dressing Medical Decision Making [facility] Narrative Medical decision making narrative: This is a 56-year-old male presents the ED with chief complaint of left hand laceration. Like to the fourt
[2022-06-25 17:08] VITALS: BP 130/78; PULSE 68; RESP 16; O2SAT 100
== END 2022-06-25 17:09 | disposition home or self-care (01) ==
LOC: ANHED 16:36
PROVIDERS: Emergency Provider Physician Assistant; PCP Internal Medicine
DX: S61.215A Laceration without foreign body of left ring finger without damage to nail, initial encounter (principal); Z23 Encounter for immunization; G47.30 Sleep apnea, unspecified; Z86.2 Personal history of diseases of the blood and blood-forming organs and certain disorders involving the immune mechanism; W27.0XXA Contact with workbench tool, initial encounter
CPT/HCPCS: 12011; 73130; 90471; 90715; 99283

== ENCOUNTER 2022-08-02 10:44 | Outpatient (CLI) | payer OTHER, SELFPAY ==
[2022-08-02 11:38] LABS: Basophils Percent Auto 0.4 % (0.2-1.2); Eosinophils Absolute Auto 0.1 K/mm3 (0-0.3); Eosinophils Percent Auto 1.3 % (0-4.4); Hematocrit 40.7 % (42.0-52.0); Hemoglobin 12.9 g/dL (14.0-18.0); Immature Granulocyte Absolute 0.03 K/mm3 (0.00-0.031); Immature Granulocyte Percent A 0.5 % (0-0.5); Lymphocytes Absolute Auto 1.39 K/mm3 (0.9-3.2); Lymphocytes Percent Auto 24.9 % (18.3-44.2); Mean Corpuscular HGB Conc 31.7 g/dl (32-36); Mean Corpuscular Hemoglobin 30.2 pg (26-34); Mean Corpuscular Volume 95.3 fl (80-100); Mean Platelet Volume 9.1 fl (7.4-10.4); Monocytes Absolute Auto 0.5 K/mm3 (0.1-0.6); Monocytes Percent Auto 8.2 % (2.6-8.5); Neutrophils Absolute Auto 3.6 K/mm3 (1.3-6.7); Neutrophils Percent Auto 64.7 % (45.5-73.1); Platelet Count Result 377 k/mm3 (150-375); Red Blood Count 4.27 M/mm3 (4.6-6.20); Red Cell Distribution Width 13.5 % (11.5-14.5); White Blood Count 5.6 K/mm3 (4.5-10.0)
[2022-08-02 11:50] LABS: Alanine Aminotransferase 32 U/L (6-50); Albumin Level 4.4 g/dL (3.5-5.1); Alkaline Phosphatase 97 U/L (38-126); Anion Gap 7 mmol/L (8-16); Aspartate Amino Transferase 32 U/L (17-59); Bilirubin,Total 0.6 mg/dL (0.2-1.3); Blood Urea Nitrogen 18 mg/dL (9-20); Calcium 8.8 mg/dL (8.4-10.2); Carbon Dioxide 30 mmol/L (22-30); Chloride 104 mmol/L (98-107); Cholesterol 195 mg/dL (0-200); Estimated Glomerular Filt Rate > 60; Glucose 104 mg/dL (65-110); HDL Direct 51 mg/dL; Sodium 141 mmol/L (137-145); Triglycerides 97 mg/dL (<150)
[2022-08-02 12:01] LABS: LDL Cholesterol Direct 114 mg/dL
[2022-08-02 12:24] LABS: Prostate Specific Antigen 6.2 ng/mL (< OR = 4.0)
== END 2022-08-02 10:45 | disposition home or self-care (01) ==
LOC: ANHLAB 10:45
PROVIDERS: PCP Internal Medicine; Visit Provider Internal Medicine
DX: Z00.00 Encounter for general adult medical examination without abnormal findings (principal)
CPT/HCPCS: 36415; 80053; 80061; 84153; 84443; 85025; G0103

== ENCOUNTER 2022-09-19 09:48 | Outpatient (CLI) | payer OTHER, SELFPAY ==
[2022-09-19 11:17] LABS: Prostate Specific Antigen 3.2 ng/mL (< OR = 4.0)
== END 2022-09-19 09:49 | disposition home or self-care (01) ==
LOC: ANHLAB 09:50
PROVIDERS: PCP Internal Medicine; Visit Provider Internal Medicine
DX: R97.20 Elevated prostate specific antigen [PSA] (principal)
CPT/HCPCS: 36415; 84153